=== PATIENT | female | born 1950 | race Asian ===

== ENCOUNTER 2017-09-07 07:41 | Outpatient (CLI) | payer OTHER ==
--- NOTE | 2017-09-08 04:58 | CT Report ---
EXAM: CT TEMPORAL BONE EXAM DATE: 09/07/2017 08:51 AM. CLINICAL HISTORY: Cholesteatoma, eustachian tube dysfunction, hearing loss. COMPARISON: None. TECHNIQUE: Routine axial CT imaging performed through the temporal bones. Reconstructions: Coronal, s agittal bone windows. IV contrast: None. In accordance with CT protocol optimization, one or more of the following dose reduction techniques w ere utilized for this exam: automated exposure control, adjustment of mA and/or KV based on patient s ize, or use of iterative reconstructive technique. FINDINGS: RIGHT: External auditory canal: Patent without significant filling defect. Middle ear and ossicles: Tympanic membrane is normal. The middle ear, including Prussak's space, is c lear. The scutum and ossicles are intact without evidence of bony erosion or dislocation. Cochlea and vestibular apparatus: The cochlea and vestibular apparatus demonstrate normal morphology. The bony plate of the superior semicircular canal is very thin or dehiscent (image 33, series 13). T he vestibular aqueduct is normal size. Internal auditory canal: Patent without evidence of mass lesion. Mastoid air cells: Opacity is noted within the superior lateral and inferior aspects of the mastoid s inus with sclerosis, likely representing chronic mastoiditis or eustachian tube dysfunction. Other: The course of the facial nerve is normal. LEFT: External auditory canal: Patent without significant filling defect. Middle ear and ossicles: Tympanic membrane is normal. There is fluid or soft tissue within Prussak's space. The scutum is blunted and the malleus and incus appear eroded. Cochlea and vestibular apparatus: The cochlea and vestibular apparatus demonstrate normal morphology. No evidence of semicircular canal dehiscence. The vestibular aqueduct is normal size. Internal auditory canal: Patent without evidence of mass lesion. Mastoid air cells: The mastoid air cells are completely opacified with surrounding sclerosis. Other: The course of the facial nerve is normal. IMPRESSION: 1. Opacification of the bilateral mastoid sinuses with sclerosis. These findings could represent special officer chilo mastoiditis and/or eustachian tube dysfunction. 2. Questionable dehiscence of the right superior semicircular canal. 3. Soft tissue or fluid in left Prussak's space with erosion of the malleus and incus and blunting of the scutum, suspicious for cholesteatoma. [facility] Referring Provider Line: [phone] SITE ID: [id number]
== END 2017-09-07 07:42 | disposition home or self-care (01) ==
LOC: DI 07:41
PROVIDERS: ATTEND Otolaryngology
DX: H71.12 Cholesteatoma of tympanum, left ear (principal); H69.83 Other specified disorders of Eustachian tube, bilateral; H91.93 Unspecified hearing loss, bilateral
CPT/HCPCS: 70480

== ENCOUNTER 2017-10-09 13:17 | Emergency (ER) | payer OTHER ==
[2017-10-09 13:33] VITALS: BP 146/85
--- NOTE | 2017-10-09 14:26 | XRAY Preliminary Report ---
Exam: XR RIBS W/PA CHEST LT IMPRESSION: 1. Acute left anterior seventh rib fracture. No pneumothorax. [facility] SITE ID: [id number]
--- NOTE | 2017-10-09 14:26 | XRAY Report ---
EXAM: LEFT RIB RADIOGRAPHY EXAM DATE: 10/09/2017 02:08 PM. CLINICAL HISTORY: Pain. COMPARISON: 08/23/2015. TECHNIQUE: 1 view of the chest and 2 views of the ribs. FINDINGS: Bones: There is fracture of the left seventh rib anteriorly. There is less than 1 mm of displacement. No other fracture identified. Lungs: There is left-sided pleural thickening which appears unchanged. There is volume loss in the le ft lung unchanged. Mediastinum: The heart size is normal. There is aortic arch atherosclerosis unchanged. Other: None. IMPRESSION: 1. Acute left anterior seventh rib fracture. No pneumothorax. [facility] Referring Provider Line: [phone] SITE ID: [id number]
--- NOTE | 2017-10-09 14:50 | ED Physician Documentation ---
PD HPI CHEST PAIN - Stated complaint Stated Complaint: LEFT SIDE PX - Chief complaint Chief Complaint: Abd Pain - History obtained from History obtained from: Patient, Family () - History of Present Illness Timing - onset: Other (5 days ago she was leaning over a couch and felt a pop on the left chest and has persistent pain there. The is worried about a rib fracture. He also wonders if she might have osteoporosis given the mechanism. They declined prescription pain medication, Alereagan is working well. No shortness of breath.) Review of Systems Constitutional: reports: Reviewed and negative Throat: denies: Dental pain / toothache, Sore throat Cardiac: denies: Palpitations, Pedal edema, Calf pain Respiratory: denies: Dyspnea, Hemoptysis PD PAST MEDICAL HISTORY - Past Medical History Cardiovascular: None Respiratory: None Neuro: None Endocrine/Autoimmune: None GI: None ANIMAL RIDE ATTENDANT: None : None HEENT: None Psych: None Musculoskeletal: None Derm: None - Past Surgical History Past Surgical History: No - Present Medications Home Medications: Ambulatory Orders Medication Instructions Recorded Confirmed Ceraplex 1 tab PO BID 05/11/14 05/11/14 Procera Avh 1 tab PO BID 05/11/14 05/11/14 HYDROcod/ACETAM 5/325 [[place] 5/325] 1 - 2 ea PO Q6H PRN #20 tablet 10/09/17 - Allergies Allergies/Adverse Reactions: Allergies Allergy/AdvReac Type Severity Reaction Status Date / Time No Known Drug Allergies Allergy Verified 05/11/14 21:26 - Social History Does the pt smoke?: No Smoking Status: Never smoker Does the pt drink ETOH?: No Does the pt have substance abuse?: No - Immunizations Immunizations are current?: Yes - POLST Patient has POLST: No PD ED PE NORMAL - Vitals Vital signs reviewed: Yes - General General: Alert and oriented X 3, No acute distress - Cardiac Cardiac: RRR, No murmur - Respiratory Respiratory: No respiratory distress, Clear bilaterally - Abdomen Abdomen: Non tender - Neuro Neuro: Alert and oriented X 3, Normal speech Results - Vitals Vitals: Vital Signs - 24 hr 10/09/17 13:28 Temperature 36.3 C L Heart Rate 94 Respiratory 16 Rate Blood Pressure 146/85 H O2 Saturation 100 Oxygen O2 Source Room air - Rads (name of study) L ribs and chest XR Radiology: EMP read contemporaneously (Acute anterior left seventh rib fracture without other abnormality.) PD MEDICAL DECISION MAKING - ED course ED course: Initially she did not want any pain medication but thought better of it before discharge. Departure - Departure Disposition: 01 Home, Self Care Clinical Impression: Fracture of rib, single, closed Qualifiers: Encounter type: initial encounter Laterality: left Qualified Code(s): S22.32XA - Fracture of one rib, left side, initial encounter for closed fracture Condition: Good Record reviewed to determine appropriate education?: Yes Instructions: ED Fx Rib Prescriptions: HYDROcod/ACETAM 5/325 [[place] 5/325] 1 - 2 ea PO Q6H PRN #20 tablet PRN Reason: Pain Comments: Use the incentive spirometer as shown. Follow-up with your doctor for routine care and bone mineral density testing. Return if worse. Your blood pressure was elevated today on check into the emergency department. This does not mean that you have hypertension, it is a common phenomenon to come to the emergency department and have elevated blood pressure. I recommend that you see your primary care physician within the week to have it rechecked when you are feeling better.
[2017-10-09] MEDS ORDERED: HYDROcod/ACETAM 5/325 MG TABLET PO STA (14:57)
== END 2017-10-09 15:18 | disposition home or self-care (01) ==
LOC: ED 13:17
DX: S22.32XA Fracture of one rib, left side, initial encounter for closed fracture (principal); X58.XXXA Exposure to other specified factors, initial encounter
CPT/HCPCS: 71101; 99283; A9270

== ENCOUNTER 2017-12-11 16:40 | Outpatient (CLI) | payer OTHER ==
--- NOTE | 2017-12-11 17:14 | XRAY Report ---
EXAM: CHEST RADIOGRAPHY EXAM DATE: 12/11/2017 04:52 PM. CLINICAL HISTORY: HEMOPTYSIS. COMPARISON: 10/09/2017. TECHNIQUE: 2 views. FINDINGS: Lungs/Pleura: Mild linear scarring in the medial right apex, as before. Mild pleural parenchymal scar ring at the left apex, as before. No new airspace opacities. No interstitial abnormality or peribronc hial cuffing. Minimal left basilar pleural fluid or thickening, as before. Mediastinum: Heart and mediastinal contours are unremarkable. Minimal aortic arch calcification. Other: None. IMPRESSION: 1. No new findings to explain hemoptysis. 2. Mild linear scarring at the medial right apex, as before. Mild left apical pleural parenchymal sca rring, as before. [facility] Referring Provider Line: [phone] SITE ID: [id number]
== END 2017-12-11 16:41 | disposition home or self-care (01) ==
LOC: DI 16:40
PROVIDERS: ATTEND Specialist
DX: R04.2 Hemoptysis (principal)
CPT/HCPCS: 71046

== ENCOUNTER 2018-08-11 18:27 | Outpatient (CLI) | payer MEDICARE, OTHER ==
--- NOTE | 2018-08-12 02:07 | XRAY Report ---
Reason: PAIN IN LEFT WRIST Procedure Date: 08/11/2018 Accession Number: [id number] / [id number] Procedure: XR - Wrist 2 View LT CPT Code: FULL RESULT: EXAM: LEFT WRIST RADIOGRAPHY EXAM DATE: 08/11/2018 06:45 PM. CLINICAL HISTORY: PAIN IN LEFT WRIST. COMPARISON: None. TECHNIQUE: 2 views. FINDINGS: Bones: Normal. No fractures or bone lesions. Joints: Osteoarthritis. Soft Tissues: Normal. No soft tissue swelling. IMPRESSION: Osteoarthritis. No definite fracture seen on these 2 views. [facility]
== END 2018-08-11 18:28 | disposition home or self-care (01) ==
LOC: DI 18:27
PROVIDERS: ATTEND Family Medicine
DX: M19.032 Primary osteoarthritis, left wrist (principal)

== ENCOUNTER 2020-08-04 20:06 | Outpatient (CLI) | payer MEDICARE, OTHER ==
--- OUTSIDE RECORDS SUMMARY | 2020-08-10 01:22 | EXTERNAL MEDICAL SUMMARY RPT | Continuity of Care Document ---
:1950 Demographics Phone Unavailable Preferred Language Unknown Marital Status Unknown Buddhist Affiliation Unknown Race Unknown Ethnic Group Unknown Author Organization [place] Address [address] [place] [address] Phone Care Team Providers Name Role Phone Sisu Unavailable Unavailable Allergies date description facility NO KNOWN ENVIRONMENTAL ALLERGIES [facility] No Known Drug Allergies [facility] Results test status date ordered by attending specimen zackary e null F 2020-08-04 LANG.[email or web address] [facility] 08-04 16:36:00 14:00:00 null F 2020-08-04 LANG.99 [facility] 08-04 16:36:00 14:00:00 facility observation status value reference units lab abnor mal line notes range code [facility] F NEGATIVE unknown [facility] eparate report - Report scanned to Patient' s EMR. [facility] F POSITIVE unknown Called to [facility] Oscar Santos RN Infectio n Preventi on by Katerin ellis MLT( CP) at 193408/05/20 .TOMÁS LINN GE Faxed t [facility] nt by Katerin ellis MLT( CP) at 193408/05/20 . See separate report - Report scanned to Patient' s EMR. [facility] Labor[facility] ry Social History date description facility [phone]
== END 2020-08-04 20:07 | disposition home or self-care (01) ==
LOC: COV 20:06
PROVIDERS: ATTEND Family Medicine
DX: U07.1 COVID-19 (principal)

== ENCOUNTER 2020-08-10 12:46 | Outpatient (CLI) | payer MEDICARE, OTHER | END 2020-08-10 12:47 | disposition critical access hospital (66) | LOC: EMS 12:46 | PROVIDERS: ATTEND Surgery | DX: R06.02 Shortness of breath (principal); R50.9 Fever, unspecified; R05 Cough; M79.10 Myalgia, unspecified site; R19.7 Diarrhea, unspecified | CPT/HCPCS: A0425; A0427 ==

== ENCOUNTER 2020-08-10 13:11 | Inpatient (IN) | payer MEDICARE, OTHER ==
[2020-08-10] MEDS ORDERED: DEXAMETHASONE 10 MG/ML VIAL IVP STA (13:27)
[2020-08-10] MEDS ORDERED: ENOXAPARIN 60 MG/0.6 ML SYRINGE SUBQ STA (13:27)
--- NOTE | 2020-08-10 13:30 | ED Physician Documentation ---
PD HPI DYSPNEA - Stated complaint Stated Complaint: SOA/C+ - Chief complaint Chief Complaint: Resp - History obtained from History obtained from: Patient, EMS - Additional information Additional information: 69-year-old woman with history of asthma was diagnosed with COVID-19 6 days ago by outpatient swab. Since yesterday she has had progressive shortness of breath, both at rest and with exertion. Noted by EMS to have a room air saturation of 83% which responded well to supplemental oxygen. She denies cough. Review of Systems Ten Systems: 10 systems reviewed and negative Constitutional: denies: Fever, Chills Nose: denies: Rhinorrhea / runny nose, Congestion Cardiac: denies: Chest pain / pressure, Palpitations, Pedal edema, Calf pain Respiratory: denies: Hemoptysis, Wheezing PD PAST MEDICAL HISTORY - Past Medical History Cardiovascular: None Respiratory: None Endocrine/Autoimmune: None GI: None PUBLIC HEALTH DENTIST: None : None HEENT: None Psych: None Musculoskeletal: None Derm: None - Past Surgical History Past Surgical History: No - Present Medications Home Medications: Ambulatory Orders Medication Instructions Recorded Confirmed Ceraplex 1 tab PO BID 05/11/14 05/11/14 Procera Avh 1 tab PO BID 05/11/14 05/11/14 HYDROcod/ACETAM 5/325 [[place] 5/325] 1 - 2 ea PO Q6H PRN #20 tablet 10/09/17 Albuterol Sulfate [Proair Hfa 1 puffs INH Q4H PRN 08/10/20 Inhaler] Fluticasone Propion/Salmeterol 1 puffs INH BID 08/10/20 [[place] 250-50 Inhub] Lisinopril [Zestril] 20 mg PO DAILY 08/10/20 Metoprolol Tartrate [Lopressor] 25 mg PO BID 08/10/20 - Allergies Allergies/Adverse Reactions: Allergies Allergy/AdvReac Type Severity Reaction Status Date / Time No Known Drug Allergies Allergy Verified 08/10/20 13:16 - Social History Does the pt smoke?: No Smoking Status: Never smoker Does the pt drink ETOH?: No Does the pt have substance abuse?: No - Immunizations Immunizations are current?: Yes - POLST Patient has POLST: No PD ED PE NORMAL - Vitals Vital signs reviewed: Yes - General General: Alert and oriented X 3, No acute distress - HEENT HEENT: PERRL, EOMI - Neck Neck: Supple, no meningeal sign, No bony TTP - Cardiac Cardiac: RRR, No murmur - Respiratory Respiratory: No respiratory distress, Other (Crackles R base) - Abdomen Abdomen: Soft, Non tender - Back Back: No CVA TTP, No spinal TTP - Derm Derm: Normal color, Warm and dry - Extremities Extremities: No edema, No calf tenderness / cord - Neuro Neuro: Alert and oriented X 3, Normal speech - Psych Psych: Normal mood, Normal affect Results - Vitals Vitals: Vital Signs - 24 hr 08/10/20 08/10/20 08/10/20 13:16 13:21 13:30 Temperature 37.1 C Heart Rate 87 83 84 Respiratory 18 16 14 Rate Blood Pressure 156/85 H 163/73 H O2 Saturation 89 L 86 L 92 08/10/20 08/10/20 08/10/20 13:51 14:00 14:05 Temperature Heart Rate 84 90 82 Respiratory 20 25 H 23 Rate Blood Pressure 149/75 H 130/109 H O2 Saturation 94 79 L 98 08/10/20 08/10/20 14:30 15:00 Temperature Heart Rate 82 83 Respiratory 18 21 Rate Blood Pressure 133/64 H 105/86 H O2 Saturation 98 98 Oxygen O2 Source Nasal cannula - Labs Labs: Laboratory Tests 08/10/20 08/10/20 08/10/20 13:40 13:40 14:15 WBC 7.6 RBC 4.99 Hgb 14.3 Hct 43.1 MCV 86.4 MCH 28.7 MCHC 33.2 RDW 11.6 L Plt Count 172 MPV 9.9 Neut # (Auto) 6.3 Lymph # (Auto) 0.7 L Polk # (Auto) 0.6 Eos # (Auto) 0.0 Baso # (Auto) 0.0 Absolute Nucleated RBC 0.00 Nucleated RBC % 0.0 Sodium 128 L Potassium 4.5 Chloride 93 L Carbon Dioxide 23 Anion Gap 12.0 BUN 7 Creatinine 0.7 Estimated GFR (MDRD) 83 L Glucose 139 H Lactic Acid 1.2 Calcium 8.5 Total Bilirubin 0.6 AST 47 H ALT 25 Alkaline Phosphatase 86 Total Protein 7.6 Albumin 3.2 Globulin 4.4 H Albumin/Globulin Ratio 0.7 L Lipase 160 H PD MEDICAL DECISION MAKING - ED course ED course: This is a 69-year-old woman with known coronavirus who presents with now shortness of breath and significant hypoxemia and findings of pneumonia on x- ray. The lowest that we saw in the ER was in the low 70s and she certainly has a supplemental oxygen requirement. She was cultured up and given full dose Lovenox, remdesivir, and Decadron. Spoke with Dr. Luna for admission at approximately 3 PM. He requests that we treat for community-acquired pneumonia with Rocephin and Zithromax. Departure - Departure Disposition: 66 [facility] DC/Xfer Clinical Impression: Pneumonia due to COVID-19 virus, Hypoxemia Condition: Serious
[2020-08-10 14:00] LABS: BASOPHILS % (AUTO) 0.1 %; EOSINOPHILS % (AUTO) 0.1 %; HGB - HEMOGLOBIN 14.3 g/dL (12.0-16.0); LYMPHOCYTES # (AUTO) 0.7 10^3/uL (1.5-3.5); LYMPHOCYTES % (AUTO) 8.8 %; MEAN CORPUSCULAR HEMOGLOBIN 28.7 pg (27.0-31.0); MEAN CORPUSCULAR HGB CONC 33.2 g/dL (32.0-36.0); MEAN CORPUSCULAR VOLUME 86.4 fL (81.0-99.0); MEAN PLATELET VOLUME 9.9 fL (7.9-10.8); MONOCYTES # (AUTO) 0.6 10^3/uL (0.0-1.0); MONOCYTES % (AUTO) 7.6 %; NEUTROPHILS # (AUTO) 6.3 10^3/uL (1.5-6.6); NEUTROPHILS % (AUTO) 82.6 %; PLT - PLATELET COUNT 172 10^3/uL (130-450); RED BLOOD COUNT 4.99 10^6/uL (4.20-5.40); RED CELL DISTRIBUTION WIDTH 11.6 % (12.0-15.0); WHITE BLOOD COUNT 7.6 x10^3/uL (4.8-10.8)
--- NOTE | 2020-08-10 14:23 | XRAY Report ---
PROCEDURE: Chest 1 View X-Ray INDICATIONS: dyspnea, covid pos TECHNIQUE: One view of the chest was acquired. COMPARISON: CXR 08/10/20 FINDINGS: Surgical changes and devices: None. Lungs and pleura: Bilateral pulmonary and retrocardiac opacities, right greater than left. Mediastinum: Mediastinal contours appear normal. Heart size is normal. Bones and chest wall: No suspicious bony lesions. Overlying soft tissues appear unremarkable. IMPRESSION: Bilateral pulmonary and retrocardiac retrocardiac opacities suggestive of pneumonia. Underlying area s of edema and/or atelectasis cannot be excluded. Reviewed by: Rica Brewer MD on 08/10/2020 2:22 PM PST Approved by: Rica Brewer MD on 08/10/2020 2:22 PM [facility] Station ID: [id number]
[2020-08-10 14:34] LABS: ALBUMIN 3.2 g/dL (3.2-5.5); ALBUMIN/GLOBULIN RATIO 0.7 (1.0-2.2); BILIRUBIN,TOTAL 0.6 mg/dL (0.2-1.0); CALCIUM 8.5 mg/dL (8.5-10.3); CREATININE 0.7 mg/dL (0.4-1.0); TOTAL PROTEIN 7.6 g/dL (6.7-8.2)
[2020-08-10] MEDS ORDERED: cefTRIAXone 2 GM in SODIUM CHLORIDE 0.9% MINIBAG 100 ML IV STA (14:59)
[2020-08-10] MEDS ORDERED: AZITHROMYCIN INJ 500 MG in SODIUM CHLORIDE 0.9% 250 ML IV STA (14:59)
[2020-08-10] MEDS ORDERED: REMDESIVIR 100MG VIAL 200 MG in SODIUM CHLORIDE 0.9% 250 ML IV ONE (15:00)
[2020-08-10] MEDS ORDERED: ONDANSETRON 4 MG/2 ML VIAL IVP PRN (15:20)
[2020-08-10] MEDS ORDERED: ACETAMINOPHEN 325 MG TABLET PO PRN (15:20)
[2020-08-10] MEDS ORDERED: SODIUM CHLORIDE FLUSH 0.9% 10 ML SYRINGE IVP PRN (15:20)
[2020-08-10] MEDS ORDERED: ALBUTEROL 1 PUFF INH STA (15:24)
[2020-08-10] MEDS ORDERED: oxyCODONE 5 MG TABLET PO PRN (15:26)
--- NOTE | 2020-08-10 15:31 | HISTORY & PHYSICAL EXAMINATION ---
Chief Complaint - Chief Complaint Chief Complaint: shortness of breath History of Present Illness - Admitted From Admitted From:: ER - History Obtained From Records Reviewed: [facility] History obtained from: pt Exam Limitations: some language banner - History of Present Illness HPI Comment/Other: This is a 69-year-old woman with history of asthma And hypertension He waswas diagnosed with COVID-19 7 days ago by outpatient swab. Since yesterday she has had progressive shortness of breath, both at rest and with exertion, And diarrhea on today. Patient was Noted by EMS to have a room air saturation of 83% which responded well to supplemental oxygen, after 15 L nonrebreather mask her sats kimberlee to 98%. She denies cough, Fever, Chest pain, Nausea or vomiting. In the ER patient has no tachycardia or tachypnea, afebrile. She has 86 to 89% o2 saturation on room air. After 2 L oxygen with nasal cannula, her O2 s aturation rise to 98%. Routine laboratory tests show was unremarkable except sodium 128. Given above medical condition, medical team was called for admission. Discussed the care goal with the patient, patient request full code. History - Past Medical History Cardiovascular: reports: None Respiratory: reports: None Endocrine/Autoimmune: reports: None GI: reports: None SLAG DUMPER: reports: None : reports: None HEENT: reports: None Psych: reports: None Musculoskeletal: reports: None Derm: reports: None MRSA Hx?: No - Family & Social History Family History: Mother: , Father: Family History Comment/Other: Patient report her father at age [age] years old unknown etiology. Her mother at when she was age 5. Social History Notes: Patient denies history of cigarette smoking, alcohol or drug abuse. She reported she lives at [place], she had 3 children. she live with her - POLST Patient has POLST: No Meds/Allgy - Home Medications Home Medications: Ambulatory Orders Medication Instructions Recorded Confirmed Ceraplex 1 tab PO BID 05/11/14 05/11/14 Procera Avh 1 tab PO BID 05/11/14 05/11/14 HYDROcod/ACETAM 5/325 [[place] 5/325] 1 - 2 ea PO Q6H PRN #20 tablet 10/09/17 Albuterol Sulfate [Proair Hfa 1 puffs INH Q4H PRN 08/10/20 Inhaler] Fluticasone Propion/Salmeterol 1 puffs INH BID 08/10/20 [[place] 250-50 Inhub] Lisinopril [Zestril] 20 mg PO DAILY 08/10/20 Metoprolol Tartrate [Lopressor] 25 mg PO BID 08/10/20 - Allergies Allergies/Adverse Reactions: Allergies Allergy/AdvReac Type Severity Reaction Status Date / Time No Known Drug Allergies Allergy Verified 08/10/20 13:16 Review of Systems - Constitutional Constitutional: denies: Fatigue, Fever, Chills, Malaise, Weakness, Poor appetite, Diaphoresis, Night sweats - Eyes Eyes: denies: Pain, Blurred vision, Field loss, Vision loss - Ears, Nose & Throat Ears, Nose & Throat: denies: Ear pain, Vertigo, Nosebleeds, Bleeding gums - Cardiovascular Cariovascular: reports: Exertional dyspnea, Decr. exercise tolerance. denies: I rregular heart rate, Palpitations, Chest pain, Edema, Lightheadedness, Syncope - Respiratory Respiratory: reports: SOB with exertion. denies: Cough, Sputum production, Wheezing, Snoring, Hemoptysis, Orthopnea, SOB at rest - Gastrointestinal Gastrointestinal: reports: Diarrhea. denies: Abdominal pain, Constipation, Rect al bleeding, Black stools, Bloody stools, Nausea, Vomiting, Titus blood emesis - Genitourinary Genitourinary: denies: Dysuria, Urgency, Incontinence - Musculoskeletal Musculoskeletal: denies: Muscle pain, Muscle aches, Limited range of motion - Integumentary Integumentary: denies: Rash, Lesions, Lumps - Neurological Neurological: denies: General weakness, Focal weakness, Headache, Dizziness, Numbness, Pre-existing deficit, Abnormal gait - Psychiatric Psychiatric: denies: Depression, Suicidal, Delusions - Endocrine Endocrine: denies: Polyuria, Polydypsia, Polyphagia - Hematologic/Lymphatic Hematologic/Lymphatic: denies: Anemia, Petechiae, Blood clots Prior Level of Functionality: Patient has function independent Exam - Vital Signs Vital Signs: Vital Signs x48h Temp Pulse Resp BP Pulse Ox 08/10/20 15:00 83 21 105/86 H 98 08/10/20 14:30 82 18 133/64 H 98 08/10/20 14:05 82 23 130/109 H 98 08/10/20 14:00 90 25 H 79 L 08/10/20 13:51 84 20 149/75 H 94 08/10/20 13:30 84 14 92 08/10/20 13:21 83 16 163/73 H 86 L 08/10/20 13:16 37.1 C 87 18 156/85 H 89 L - Physical Exam General Appearance: positive: No acute distress, Alert. negative: Lethargic Eyes Bilateral: positive: Normal inspection, PERRL, No lid inflammation ENT: positive: ENT inspection nml, No signs of dehydration. negative: Purulent nasal drainage Neck: positive: Nml inspection, Trachea midline. negative: Thyromegaly, Tracheal deviation Respiratory: positive: Chest non-tender, No respiratory distress, Rhonchi. negative: Breath sounds nml, Wheezes, Rales Cardiovascular: negative: Regular rate & rhythm, No murmur, Tachycardia, Bradycardia, Systolic murmur, Diastolic murmur Peripheral Pulses: positive: 2+ Abdomen: positive: Non-tender, Nml bowel sounds, No distention. negative: Tenderness, Guarding, Rebound Back: negative: CVA tenderness (R), CVA tenderness (L) Skin: positive: Color nml, Warm, Dry. negative: Cyanosis, Diaphoresis, Pallor Extremities: positive: Non-tender, Nml appearance. negative: Calf tenderness Neurologic/Psychiatric: positive: Oriented x3, Sensation nml, Mood/affect nml. negative: Weakness, Sensory loss, Facial droop, Slurred/abnml speech, Depressed mood/affect Conclusion/Plan - Problem List (1) Pneumonia due to COVID-19 virus Conclusion/Plan: Patient had a positive COVID-19 test 7 days ago, there are many patient present symptoms after 1 week. Patient show shortness breathing at the home then patient was brought to hospital. After the patient with oxygen, patient show hemodynamic stable, patient does not show respiratory distress at this point After she was given oxygen. Patient was already treated COVID-19 with with r emdesivir, decadron and Lovenox in the ER. We will continue supplemental oxygen as needed, continue treat with remdesivir, decadron and Lovenox as DVT prophylaxis. Dr. Bullock asked to treat community-acquired pneumonia with azithromycin and Rocephin as well. Patient was prescribed probiotics (2) Hypoxemia Conclusion/Plan: Patient show 86% to 89% sats on room air in the ER, After she had 1 week tested positive for COVID-19. We will continue supplemental oxygen for patient, will continue treated COVID-19 with currently CDC recommended medications. We will closely monitor patient for her situation, carefully precaution of any deterioration Of respiratory status. (3) Hypertension Conclusion/Plan: Patient blood pressure is stable now. we will continue patient home blood pressure medicine after Confirmed (4) Asthma Conclusion/Plan: Patient has history of asthma, we will order albuterol MDI, Continue Decadron. Supplemental oxygen as needed (5) Hyponatremia Conclusion/Plan: Patient had a sodium 128, it is likely Hypovolumia of hyponatremia, we will give patient intravenous normal saline, continue laboratory coordinator - Lab Results Fish Bones: 08/10/20 13:40 08/10/20 14:15 Core Measures - Anticipated LOS I expect patient to be DC'd or transferred within 96 hours.: Yes - DVT/VTE - Prophylaxis VTE/DVT Device ordered at admit?: Yes VTE/DVT Prophylaxis med ordered at admit?: Yes
[2020-08-10] MEDS ORDERED: ALBUTEROL NEB 2.5 MG/3 ML INH PRN (16:05)
[2020-08-10] MEDS: SODIUM CHLORIDE FLUSH 0.9% 10 ML SYRINGE IVP SCH ×2 (16:38→23:43)
[2020-08-10] MEDS: SODIUM CHLORIDE 0.9% 1,000 ML IV SCH (16:38)
[2020-08-10] MEDS: traZODone 50 MG TABLET PO SCH (22:11)
[2020-08-11] MEDS: SODIUM CHLORIDE 0.9% 1,000 ML IV SCH (03:41)
[2020-08-11 05:08] LABS: BASOPHILS % (AUTO) 0.3 %; LYMPHOCYTES % (AUTO) 15.3 %; MEAN CORPUSCULAR HEMOGLOBIN 28.4 pg (27.0-31.0); MEAN CORPUSCULAR HGB CONC 32.2 g/dL (32.0-36.0); MEAN CORPUSCULAR VOLUME 88.2 fL (81.0-99.0); MEAN PLATELET VOLUME 9.3 fL (7.9-10.8); MONOCYTES % (AUTO) 9.8 %; NEUTROPHILS % (AUTO) 73.8 %; PLT - PLATELET COUNT 173 10^3/uL (130-450); RED BLOOD COUNT 4.23 10^6/uL (4.20-5.40); RED CELL DISTRIBUTION WIDTH 11.7 % (12.0-15.0); WHITE BLOOD COUNT 3.7 x10^3/uL (4.8-10.8)
[2020-08-11 05:10] LABS: CALCIUM 8.2 mg/dL (8.5-10.3); CREATININE 0.7 mg/dL (0.4-1.0)
[2020-08-11 05:20] LABS: ABNORMAL LYMPHS % (MANUAL) 0 %
[2020-08-11 05:42] LABS: BAND NEUTROPHILS % (MANUAL) 2 %; DIFFERENTIAL COMMENT MANUAL DIFFERENTIAL; LYMPHOCYTES # (MANUAL) 0.4 10^3/uL (1.5-3.5); LYMPHOCYTES % (MANUAL) 11 %; METAMYELOCYTES % (MANUAL) 1 %; MONOCYTES # (MANUAL) 0.2 10^3/uL (0.0-1.0); PLATELET ESTIMATE, MANUAL NORMAL (130-450,000) (NORMAL); RBC MORPHOLOGY (MULTIPLE) NORMAL APPEARANCE (NORMAL)
[2020-08-11] MEDS: PANTOPRAZOLE 40 MG TABLET PO SCH (06:54)
[2020-08-11] MEDS: SACCHAROMYCES BOULARDII 250 MG CAPSULE PO SCH ×2 (07:55→17:46)
[2020-08-11] MEDS ORDERED: ALBUTEROL 1 PUFF INH PRN (08:28)
[2020-08-11] MEDS: cefTRIAXone 2 GM in SODIUM CHLORIDE 0.9% MINIBAG 100 ML IV SCH (08:40)
[2020-08-11] MEDS: ENOXAPARIN 40 MG/0.4 ML SYRINGE SUBQ SCH (08:40)
[2020-08-11] MEDS: AZITHROMYCIN 250 MG TABLET PO SCH (08:41)
[2020-08-11] MEDS ORDERED: METOPROLOL 5 MG/5 ML VIAL IVP PRN (08:52)
[2020-08-11] MEDS ORDERED: METOPROLOL TARTRATE 25 MG TABLET PO SCH ×2 (09:00→21:00)
[2020-08-11] MEDS ORDERED: METOPROLOL 5 MG/5 ML VIAL IVP SCH (09:00)
[2020-08-11] MEDS: REMDESIVIR 100MG VIAL 100 MG in SODIUM CHLORIDE 0.9% 100ML 100 ML IV SCH (09:22)
[2020-08-11] MEDS: DEXAMETHASONE 10 MG/ML VIAL IVP SCH (09:57)
--- NOTE | 2020-08-11 14:51 | PROVIDER PROGRESS NOTE ---
Subjective - Prog Note Date Prog Note Date: 08/11/20 - Subjective Pt reports feeling: Improved Subjective: Patient reported she feel breath better, she take a shower go to bathroom and come back. 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 After we give patient intravenous metoprolol and p.o. metoprolol, her pulse is controlled, she feels much better. Patient does not present Acute respiratory distress. She denies fever fever, or chest pain. [facility] vital sign show pt only has 89% on 2 liter of O2 but pt feel comfortable and no respiratory distress, I ask FINISHER HAND recheck pt's O2 sats and vital sign Current Medications - Current Medications Current Medications: Active Medications Acetaminophen (Acetaminophen 325 Mg Tablet) 650 mg PO Q4HR PRN PRN Reason: Pain 1 to 4 Albuterol (Albuterol 1 Puff) 2 puffs INH RTQ4H PRN PRN Reason: Dyspnea Stop: 08/18/20 08:27 Last Admin: 08/11/20 08:49 Dose: 2 puffs Documented by: Azithromycin (Azithromycin 250 Mg Tablet) 250 mg PO DAILY [facility] Stop: 08/14/20 09:01 Last Admin: 08/11/20 08:41 Dose: 250 mg Documented by: Dexamethasone (Dexamethasone 10 Mg/Ml Vial) 6 mg IVP DAILY [facility] Stop: 08/14/20 12:00 Last Admin: 08/11/20 09:57 Dose: 6 mg Documented by: Enoxaparin Sodium (Enoxaparin 40 Mg/0.4 Ml Syringe) 40 mg SUBQ DAILY [facility] Last Admin: 08/11/20 08:40 Dose: 40 mg Documented by: Ceftriaxone Sodium 2 gm/ (Sodium Chloride) 100 mls @ 200 mls/hr IV DAILY [facility] Stop: 08/14/20 09:29 Last Infusion: 08/11/20 09:10 Dose: Infused Documented by: Remdesivir 100 mg/ Sodium (Chloride) 100 mls @ 200 mls/hr IV DAILY [facility] Stop: 08/14/20 09:29 Last Infusion: 08/11/20 10:50 Dose: Infused Documented by: Lisinopril (Lisinopril 20 Mg Tablet) 20 mg PO DAILY [facility] Metoprolol Tartrate (Metoprolol 5 Mg/5 Ml Vial) 5 mg IVP Q6H PRN PRN Reason: Tachycardia Metoprolol Tartrate (Metoprolol Tartrate 25 Mg Tablet) 37.5 mg PO BID [facility] Ondansetron HCl (Ondansetron 4 Mg/2 Ml Vial) 4 mg IVP Q6HR PRN PRN Reason: Nausea / Vomiting Oxycodone HCl (Oxycodone 5 Mg Tablet) 5 mg PO Q4HR PRN PRN Reason: PAIN Pantoprazole Sodium (Pantoprazole 40 Mg Tablet) 40 mg PO QDAC [facility] Last Admin: 08/11/20 06:54 Dose: 40 mg Documented by: Saccharomyces Boulardii (Saccharomyces Boulardii 250 Mg Capsule) 250 mg PO BIDWM [facility] Last Admin: 08/11/20 07:55 Dose: 250 mg Documented by: Sodium Chloride (Sodium Chloride Flush 0.9% 10 Ml Syringe) 10 ml IVP PRN PRN PRN Reason: NEEDED PER PROVIDER ORDERS Sodium Chloride (Sodium Chloride Flush 0.9% 10 Ml Syringe) 10 ml IVP 0100,0900,1700 [facility] Last Admin: 08/10/20 23:43 Dose: 10 ml Documented by: Trazodone HCl (Trazodone 50 Mg Tablet) 50 mg PO QPM [facility] Last Admin: 08/10/20 22:11 Dose: 50 mg Documented by: Albuterol Sulfate [Proair Hfa Inhaler] 1 puffs INH Q4H PRN 08/10/20 Fluticasone Propion/Salmeterol [Wixela 250-50 Inhub] 1 puffs INH BID 08/10/20 Lisinopril [Zestril] 20 mg PO DAILY 08/10/20 Metoprolol Tartrate [Lopressor] 25 mg PO BID 08/10/20 Objective - Vital Signs/Intake & Output Vital Signs: Vital Signs x48h Temp Pulse Pulse Resp BP Pulse Ox 08/11/20 13:00 36.5 C 100 21 177/91 H 89 L 08/11/20 09:49 104 H 138/87 H 08/11/20 09:45 110 H 155/98 H 08/11/20 09:30 97 145/73 H 08/11/20 09:22 107 H 162/80 H 08/11/20 08:50 130 H 18 08/11/20 08:42 36.7 C 128 H 18 93 08/11/20 08:08 140 H 21 151/87 H 97 08/11/20 07:37 36.7 C 65 20 146/66 H 94 Intake & Output: Intake & Output 08/08/20 08/09/20 08/10/20 08/11/20 23:59 23:59 23:59 23:59 Intake Total 394.065 7391 Balance 582.488 5084 - Objective General Appearance: positive: No acute distress, Alert. negative: Lethargic Eyes Bilateral: positive: Normal inspection, PERRL, No lid inflammation ENT: positive: ENT inspection nml, No signs of dehydration. negative: Purulent nasal drainage Neck: positive: Nml inspection, Trachea midline. negative: Thyromegaly, Tracheal deviation Respiratory: positive: Chest non-tender, No respiratory distress, Rhonchi. negative: Wheezes, Rales Cardiovascular: positive: Regular rate & rhythm, No murmur. negative: Tach ycardia, Bradycardia, Systolic murmur, Diastolic murmur Peripheral Pulses: 2+ Radial (R), 2+ Radial (L) Abdomen: positive: Non-tender, Nml bowel sounds, No distention. negative: Tenderness, Guarding, Rebound Back: positive: Nml inspection Skin: positive: Color nml, Warm, Dry. negative: Cyanosis, Diaphoresis, Pallor Extremities: positive: Non-tender, Full ROM, Nml appearance. negative: Calf tenderness Neurologic/Psychiatric: positive: Oriented x3, Motor nml, Sensation nml, Mood/affect nml. negative: Weakness, Sensory loss, Facial droop, Slurred/abnml speech, Depressed mood/affect - Lab Results Fish Bones: 08/11/20 04:05 08/11/20 04:05 Other Labs: Lab Results x24hrs 08/11/20 08/11/20 Range/Units 04:05 04:05 WBC 3.7 L (4.8-10.8) x10^3/uL RBC 4.23 (4.20-5.40) 10^6/uL Hgb 12.0 (12.0-16.0) g/dL Hct 37.3 (37.0-47.0) % MCV 88.2 (81.0-99.0) fL MCH 28.4 (27.0-31.0) pg MCHC 32.2 (32.0-36.0) g/dL RDW 11.7 L (12.0-15.0) % Plt Count 173 (130-450) 10^3/uL MPV 9.3 (7.9-10.8) fL Neut # (Auto) Not Reportable Lymph # (Auto) Not Reportable [place] # (Auto) Not Reportable Eos # (Auto) Not Reportable Baso # (Auto) Not Reportable Absolute Nucleated RBC Not Reportable Total Counted 100 Band Neuts % (Manual) 2 (0 - 10) % Abnorm Lymph % (Manual) 0 % Metamyelocytes % 1 H ( - 0) % Nucleated RBC % Not Reportable Neutrophils # (Manual) 3.1 (1.5-6.6) 10^3/uL Lymphocytes # (Manual) 0.4 L (1.5-3.5) 10^3/uL Monocytes # (Manual) 0.2 (0.0-1.0) 10^3/uL Eosinophils # (Manual) 0.0 (0-0.7) 10^3/uL Basophils # (Manual) 0.0 (0-0.1) 10^3/uL Differential Comment MANUAL DIFFERENTIAL Platelet Estimate NORMAL (130-450,000) (NORMAL) RBC Morph Micro Appear NORMAL APPEARANCE (NORMAL) Sodium 134 L (135-145) mmol/L Potassium 4.7 (3.5-5.0) mmol/L Chloride 105 (101-111) mmol/L Carbon Dioxide 21 (21-32) mmol/L Anion Gap 8.0 (6-13) BUN 11 (6-20) mg/dL Creatinine 0.7 (0.4-1.0) mg/dL Estimated GFR (MDRD) 83 L (>89) Glucose 165 H (70-100) mg/dL Calcium 8.2 L (8.5-10.3) mg/dL ABX Reporting Has patient been on IV antibiotics over the past 48 hours?: Yes Sepsis Event Note (H) - Evaluation Current Stage of Sepsis: Ruled out Assessment/Plan - Problem List (1) Pneumonia due to COVID-19 virus Impression: 08/11 Nurse report patient had a 94% sat on 2 L of oxygen. Patient has no respiratory distress. We will continue Covid 19 treatment of Decadron and remdesvis, and Lovenox for DVT prophylaxis. Continue antibiotics For treatment of possible bacterial infection pneumonia Patient had a positive COVID-19 test 7 days ago, there are many patient present symptoms after 1 week. Patient show shortness breathing at the home then patient was brought to hospital. After the patient with oxygen, patient show hemodynamic stable, patient does not show respiratory distress at this point After she was given oxygen. Patient was already treated COVID-19 with with remdesivir, decadron and Lovenox in the ER. We will continue supplemental oxygen as needed, continue treat with remdesivir, decadron and Lovenox as DVT prophylaxis. Dr. Bullock asked to treat community-acquired pneumonia with azithromycin and Rocephin as well. Patient was prescribed probiotics (2) Hypoxemia Conclusion/Plan: 08/11, Patient feels comfortable, patient has no respiratory distress or shortness breathing, She had 94% sats on 2 L of oxygen. Continue treated pneumo [place], Continue supplemental oxygen as needed Patient show 86% to 89% sats on room air in the ER, After she had 1 week tested positive for COVID-19. We will continue supplemental oxygen for patient, will continue treated COVID-19 with currently CDC recommended medications. We will closely monitor patient for her situation, carefully precaution of any deterioration Of respiratory status. (3)afib with RVR 08/11 Patient Feel palpation, patient's heart rate was up to 130-140, EKG show patient had a fibrillation. Patient was unknown she had before. Chads score is 1, No anticoagulation indicated. We will give patient intravenous metoprolol, resume home metoprolol. Then patient heart rate is down less than 100, And patient feels much better. 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 Continue vital signs monitor Patient blood pressure is stable now. we will continue patient home blood pressure medicine after Confirmed (5) Asthma Conclusion/Plan: Patient has history of asthma, we will order albuterol MDI, Continue Decadron. 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
[2020-08-11] MEDS: lisinopriL 20 MG TABLET PO SCH (15:12)
[2020-08-11] MEDS: SODIUM CHLORIDE FLUSH 0.9% 10 ML SYRINGE IVP SCH ×2 (15:13→17:46)
[2020-08-11] MEDS: METOPROLOL TARTRATE 25 MG TABLET PO SCH (21:39)
[2020-08-11] MEDS: traZODone 50 MG TABLET PO SCH (21:41)
[2020-08-12] MEDS: SODIUM CHLORIDE FLUSH 0.9% 10 ML SYRINGE IVP SCH ×3 (01:39→16:59)
[2020-08-12 05:18] LABS: BASOPHILS % (AUTO) 0.1 %; HGB - HEMOGLOBIN 12.7 g/dL (12.0-16.0); LYMPHOCYTES % (AUTO) 11.6 %; MEAN CORPUSCULAR HEMOGLOBIN 28.6 pg (27.0-31.0); MEAN CORPUSCULAR HGB CONC 32.6 g/dL (32.0-36.0); MEAN CORPUSCULAR VOLUME 87.6 fL (81.0-99.0); MEAN PLATELET VOLUME 9.6 fL (7.9-10.8); MONOCYTES % (AUTO) 7.1 %; NEUTROPHILS % (AUTO) 80.4 %; PLT - PLATELET COUNT 227 10^3/uL (130-450); RED BLOOD COUNT 4.44 10^6/uL (4.20-5.40); RED CELL DISTRIBUTION WIDTH 11.8 % (12.0-15.0)
[2020-08-12 05:23] LABS: CALCIUM 8.7 mg/dL (8.5-10.3); CREATININE 0.8 mg/dL (0.4-1.0)
[2020-08-12 05:34] LABS: ABNORMAL LYMPHS % (MANUAL) 0 %
[2020-08-12 06:10] LABS: BAND NEUTROPHILS % (MANUAL) 4 %; LYMPHOCYTES # (MANUAL) 0.8 10^3/uL (1.5-3.5); LYMPHOCYTES % (MANUAL) 9 %; MONOCYTES # (MANUAL) 0.6 10^3/uL (0.0-1.0); PLATELET ESTIMATE, MANUAL NORMAL (130-450,000) (NORMAL); RBC MORPHOLOGY (MULTIPLE) NORMAL APPEARANCE (NORMAL)
[2020-08-12 06:11] LABS: DIFFERENTIAL COMMENT MANUAL DIFFERENTIAL
[2020-08-12] MEDS: PANTOPRAZOLE 40 MG TABLET PO SCH (06:34)
[2020-08-12] MEDS: lisinopriL 20 MG TABLET PO SCH (10:58)
[2020-08-12] MEDS: SACCHAROMYCES BOULARDII 250 MG CAPSULE PO SCH ×2 (10:58→16:59)
[2020-08-12] MEDS: ASPIRIN EC 325 MG TABLET PO SCH (10:58)
[2020-08-12] MEDS: METOPROLOL TARTRATE 25 MG TABLET PO SCH ×2 (10:58→21:18)
[2020-08-12] MEDS: AZITHROMYCIN 250 MG TABLET PO SCH (10:58)
[2020-08-12] MEDS: ENOXAPARIN 40 MG/0.4 ML SYRINGE SUBQ SCH (11:00)
[2020-08-12] MEDS: cefTRIAXone 2 GM in SODIUM CHLORIDE 0.9% MINIBAG 100 ML IV SCH (11:01)
[2020-08-12] MEDS: DEXAMETHASONE 10 MG/ML VIAL IVP SCH (11:01)
[2020-08-12] MEDS: SODIUM CHLORIDE 0.9% 1,000 ML IV SCH ×2 (11:02→21:46)
[2020-08-12] MEDS: REMDESIVIR 100MG VIAL 100 MG in SODIUM CHLORIDE 0.9% 100ML 100 ML IV SCH (11:10)
--- NOTE | 2020-08-12 11:38 | PHARMACY PROGRESS NOTE ---
- Best Possible Medication History Admit Date and Time: 08/10/20 1520 Processed by: Pharmacy Medication History completed: Yes Patient Interview: Pt unable to participate Secondary Source(s): Pharmacy records, Insurance records (PATIENT COVID POS; MEDICATION RECONCILIATION COMPLETED USING ONLY INSURANCE RECORDS ) As the person ultimately responsible for medication therapy, providers are able to order a medication from an existing home medication list in [facility] via the "Reconcile Routine" prior to Confirmation of that medication by telecommunications support. Such practice is discouraged except when the physician, in their clinical judgment, deems that a medical need exists for a medication without regard to previous use.
--- NOTE | 2020-08-12 13:24 | PROVIDER PROGRESS NOTE ---
Subjective - Prog Note Date Prog Note Date: 08/12/20 - Subjective Pt reports feeling: Improved Subjective: Patient reported she feels breathing better. Patient is comfortable, no respiratory distress sitting in the chair to eat her lunch. 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 She denies chest pain or fever Current Medications - Current Medications Current Medications: Active Medications Acetaminophen (Acetaminophen 325 Mg Tablet) 650 mg PO Q4HR PRN PRN Reason: Pain 1 to 4 Albuterol (Albuterol 1 Puff) 2 puffs INH RTQ4H PRN PRN Reason: Dyspnea Stop: 08/18/20 08:27 Last Admin: 08/11/20 08:49 Dose: 2 puffs Documented by: Aspirin (Aspirin Ec 325 Mg Tablet) 325 mg PO DAILY [facility] Last Admin: 08/12/20 10:58 Dose: 325 mg Documented by: Azithromycin (Azithromycin 250 Mg Tablet) 250 mg PO DAILY [facility] Stop: 08/14/20 09:01 Last Admin: 08/12/20 10:58 Dose: 250 mg Documented by: Dexamethasone (Dexamethasone 10 Mg/Ml Vial) 6 mg IVP DAILY [facility] Stop: 08/14/20 12:00 Last Admin: 08/12/20 11:01 Dose: 6 mg Documented by: Enoxaparin Sodium (Enoxaparin 40 Mg/0.4 Ml Syringe) 40 mg SUBQ DAILY [facility] Last Admin: 08/12/20 11:00 Dose: 40 mg Documented by: Ceftriaxone Sodium 2 gm/ (Sodium Chloride) 100 mls @ 200 mls/hr IV DAILY [facility] Stop: 08/14/20 09:29 Last Admin: 08/12/20 11:01 Dose: 200 mls/hr Documented by: Remdesivir 100 mg/ Sodium (Chloride) 100 mls @ 200 mls/hr IV DAILY [facility] Stop: 08/14/20 09:29 Last Admin: 08/12/20 11:10 Dose: 200 mls/hr Documented by: Sodium Chloride (Normal Saline 0.9%) 1,000 mls @ 83.333 mls/hr IV .Q12H [facility] Stop: 08/13/20 08:59 Last Admin: 08/12/20 11:02 Dose: 83.333 mls/hr Documented by: Lisinopril (Lisinopril 20 Mg Tablet) 20 mg PO DAILY [facility] Last Admin: 08/12/20 10:58 Dose: 20 mg Documented by: Metoprolol Tartrate (Metoprolol 5 Mg/5 Ml Vial) 5 mg IVP Q6H PRN PRN Reason: Tachycardia Metoprolol Tartrate (Metoprolol Tartrate 25 Mg Tablet) 37.5 mg PO BID [facility] Last Admin: 08/12/20 10:58 Dose: 37.5 mg Documented by: Ondansetron HCl (Ondansetron 4 Mg/2 Ml Vial) 4 mg IVP Q6HR PRN PRN Reason: Nausea / Vomiting Oxycodone HCl (Oxycodone 5 Mg Tablet) 5 mg PO Q4HR PRN PRN Reason: PAIN Pantoprazole Sodium (Pantoprazole 40 Mg Tablet) 40 mg PO QDAC [facility] Last Admin: 08/12/20 06:34 Dose: 40 mg Documented by: Saccharomyces Boulardii (Saccharomyces Boulardii 250 Mg Capsule) 250 mg PO BIDWM [facility] Last Admin: 08/12/20 10:58 Dose: 250 mg Documented by: Sodium Chloride (Sodium Chloride Flush 0.9% 10 Ml Syringe) 10 ml IVP PRN PRN PRN Reason: NEEDED PER PROVIDER ORDERS Sodium Chloride (Sodium Chloride Flush 0.9% 10 Ml Syringe) 10 ml IVP 0100,0900,1700 [facility] Last Admin: 08/12/20 11:01 Dose: 10 ml Documented by: Trazodone HCl (Trazodone 50 Mg Tablet) 50 mg PO QPM [facility] Last Admin: 08/11/20 21:41 Dose: 50 mg Documented by: Albuterol Sulfate [Proair Hfa Inhaler] 1 puffs INH Q4H PRN 08/10/20 Fluticasone Propion/Salmeterol [Wixela 250-50 Inhub] 1 puffs INH BID 08/10/20 Lisinopril [Zestril] 20 mg PO DAILY 08/10/20 Metoprolol Tartrate [Lopressor] 25 mg PO BID 08/10/20 Objective - Vital Signs/Intake & Output Vital Signs: Vital Signs x48h Temp Pulse Resp BP BP Pulse Ox 08/12/20 12:06 18 92 08/12/20 12:00 36.4 C L 93 18 132/79 H 86 L 08/12/20 10:58 150/84 H 08/12/20 09:00 36.3 C L 101 H 18 147/87 H 91 L Intake & Output: Intake & Output 08/09/20 08/10/20 08/11/20 08/12/20 23:59 23:59 23:59 23:59 Intake Total 825.889 9082 Balance 020.032 4392 - Objective General Appearance: positive: No acute distress, Alert. negative: Lethargic Eyes Bilateral: positive: Normal inspection, PERRL, No lid inflammation ENT: positive: ENT inspection nml, No signs of dehydration. negative: Purulent nasal drainage Neck: positive: Nml inspection, Trachea midline. negative: Thyromegaly, Tracheal deviation Respiratory: positive: Chest non-tender, No respiratory distress. negative: Wheezes, Rales Cardiovascular: positive: Regular rate & rhythm, No murmur. negative: Tachycardia, Bradycardia, Systolic murmur, Diastolic murmur Abdomen: positive: Non-tender, Nml bowel sounds, No distention. negative: Tenderness, Guarding Back: positive: Nml inspection. negative: CVA tenderness (R), CVA tenderness (L) Skin: positive: Color nml, Warm, Dry. negative: Cyanosis, Diaphoresis, Pallor Extremities: positive: Non-tender, Nml appearance. negative: Calf tenderness Neurologic/Psychiatric: positive: Oriented x3, Motor nml, Sensation nml, Mood/affect nml. negative: Weakness, Sensory loss, Facial droop, Slurred/abnml speech, Depressed mood/affect - Lab Results Fish Bones: 08/12/20 04:20 08/12/20 04:20 Other Labs: Lab Results x24hrs 08/12/20 08/12/20 08/12/20 Range/Units 04:20 04:20 04:20 WBC (4.8-10.8) x10^3/uL RBC (4.20-5.40) 10^6/uL Hgb (12.0-16.0) g/dL Hct (37.0-47.0) % MCV (81.0-99.0) fL MCH (27.0-31.0) pg MCHC (32.0-36.0) g/dL RDW (12.0-15.0) % Plt Count (130-450) 10^3/uL MPV (7.9-10.8) fL Neut # (Auto) Lymph # (Auto) [place] # (Auto) Eos # (Auto) Baso # (Auto) Absolute Nucleated RBC Total Counted Band Neuts % (Manual) (0 - 10) % Abnorm Lymph % (Manual) % Nucleated RBC % Neutrophils # (Manual) (1.5-6.6) 10^3/uL Lymphocytes # (Manual) (1.5-3.5) 10^3/uL Monocytes # (Manual) (0.0-1.0) 10^3/uL Eosinophils # (Manual) (0-0.7) 10^3/uL Basophils # (Manual) (0-0.1) 10^3/uL Differential Comment Platelet Estimate (NORMAL) RBC Morph Micro Appear (NORMAL) Sodium 136 (135-145) mmol/L Potassium 4.4 (3.5-5.0) mmol/L Chloride 107 (101-111) mmol/L Carbon Dioxide 20 L (21-32) mmol/L Anion Gap 9.0 (6-13) BUN 21 H (6-20) mg/dL Creatinine 0.8 (0.4-1.0) mg/dL Estimated GFR (MDRD) 71 L (>89) Glucose 156 H (70-100) mg/dL Calcium 8.7 (8.5-10.3) mg/dL Troponin I High Sens 15.6 H* (2.3-14.8) ng/L TSH < 0.08 L (0.34-5.60) uIU/mL 08/12/20 08/11/20 Range/Units 04:20 22:02 WBC 9.0 (4.8-10.8) x10^3/uL RBC 4.44 (4.20-5.40) 10^6/uL Hgb 12.7 (12.0-16.0) g/dL Hct 38.9 (37.0-47.0) % MCV 87.6 (81.0-99.0) fL MCH 28.6 (27.0-31.0) pg MCHC 32.6 (32.0-36.0) g/dL RDW 11.8 L (12.0-15.0) % Plt Count 227 (130-450) 10^3/uL MPV 9.6 (7.9-10.8) fL Neut # (Auto) Not Reportable Lymph # (Auto) Not Reportable [place] # (Auto) Not Reportable Eos # (Auto) Not Reportable Baso # (Auto) Not Reportable Absolute Nucleated RBC Not Reportable Total Counted 100 Band Neuts % (Manual) 4 (0 - 10) % Abnorm Lymph % (Manual) 0 % Nucleated RBC % Not Reportable Neutrophils # (Manual) 7.6 H (1.5-6.6) 10^3/uL Lymphocytes # (Manual) 0.8 L (1.5-3.5) 10^3/uL Monocytes # (Manual) 0.6 (0.0-1.0) 10^3/uL Eosinophils # (Manual) 0.0 (0-0.7) 10^3/uL Basophils # (Manual) 0.0 (0-0.1) 10^3/uL Differential Comment MANUAL DIFFERENTIAL Platelet Estimate NORMAL (130-450,000) (NORMAL) RBC Morph Micro Appear NORMAL APPEARANCE (NORMAL) Sodium (135-145) mmol/L Potassium (3.5-5.0) mmol/L Chloride (101-111) mmol/L Carbon Dioxide (21-32) mmol/L Anion Gap (6-13) BUN (6-20) mg/dL Creatinine (0.4-1.0) mg/dL Estimated GFR (MDRD) (>89) Glucose (70-100) mg/dL Calcium (8.5-10.3) mg/dL Troponin I High Sens 19.7 H* (2.3-14.8) ng/L TSH (0.34-5.60) uIU/mL ABX Reporting Has patient been on IV antibiotics over the past 48 hours?: Yes Sepsis Event Note (H) - Evaluation Current Stage of Sepsis: Ruled out Assessment/Plan - Problem List (1) Pneumonia due to COVID-19 virus Impression: 08/12 Patient's O2 sat dropped to 86% in room air without oxygen But saturation rise to 92 or 93% .On 2 L oxygen, also patient has no respiratory distress. We will still continue treatment with Decadron, with remdisiv, Lovenox. Continue intravenous IV fluids, continue antibiotics for possible coinfection with bacterial. Continue probiotics. 08/11 Nurse report patient had a 94% sat on 2 L of oxygen. Patient has no respiratory distress. We will continue Covid 19 treatment of Decadron and remdesvis, and Lovenox for DVT prophylaxis. Continue antibiotics For treatment of possible bacterial infection pneumonia Patient had a positive COVID-19 test 7 days ago, there are many patient present symptoms after 1 week. Patient show shortness breathing at the home then patient was brought to hospital. After the patient with oxygen, patient show hemodynamic stable, patient does not show respiratory distress at this point After she was given oxygen. Patient was already treated COVID-19 with with remdesivir, decadron and Lovenox in the ER. We will continue supplemental oxygen as needed, continue treat with remdesivir, decadron and Lovenox as DVT prophylaxis. Dr. Bullock asked to treat community-acquired pneumonia with azithromycin and Rocephin as well. Patient was prescribed probiotics (2) Hypoxemia Conclusion/Plan: 08/11, Patient feels comfortable, patient has no respiratory distress or shortness breathing, She had 94% sats on 2 L of oxygen. Continue treated pneumonia, Continue supplemental oxygen as needed Patient show 86% to 89% sats on room air in the ER, After she had 1 week tested positive for COVID-19. We will continue supplemental oxygen for patient, will continue treated COVID-19 with currently CDC recommended medications. We will closely monitor patient for her situation, carefully precaution of any deterioration Of respiratory status. (3)New afib with RVR 08/12 Heart rate Is controlled now. Continue metoprolol, Continue telemetry. 08/11 Patient Feel palpation, patient's heart rate was up to 130-140, EKG show patient had a fibrillation. Patient was unknown she had before. Chads score is 1, No anticoagulation indicated. We will give patient intravenous metoprolol, resume home metoprolol. Then patient heart rate is down less than 100, And patient feels much better. 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 Continue vital signs monitor Patient blood pressure is stable now. we will continue patient home blood pressure medicine after Confirmed (5) Asthma Conclusion/Plan: Patient has history of asthma, we will order albuterol MDI, Continue Decadron. 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
[2020-08-12] MEDS: traZODone 50 MG TABLET PO SCH (21:19)
[2020-08-13] MEDS: SODIUM CHLORIDE FLUSH 0.9% 10 ML SYRINGE IVP SCH ×3 (00:50→16:44)
[2020-08-13 05:20] LABS: BASOPHILS % (AUTO) 0.3 %; HGB - HEMOGLOBIN 12.1 g/dL (12.0-16.0); LYMPHOCYTES % (AUTO) 11.2 %; MEAN CORPUSCULAR HEMOGLOBIN 28.4 pg (27.0-31.0); MEAN CORPUSCULAR HGB CONC 32.1 g/dL (32.0-36.0); MEAN CORPUSCULAR VOLUME 88.5 fL (81.0-99.0); MEAN PLATELET VOLUME 9.2 fL (7.9-10.8); MONOCYTES % (AUTO) 5.5 %; NEUTROPHILS % (AUTO) 81.5 %; PLT - PLATELET COUNT 261 10^3/uL (130-450); RED BLOOD COUNT 4.26 10^6/uL (4.20-5.40); RED CELL DISTRIBUTION WIDTH 11.9 % (12.0-15.0); WHITE BLOOD COUNT 8.9 x10^3/uL (4.8-10.8)
[2020-08-13 05:24] LABS: CREATININE 0.8 mg/dL (0.4-1.0)
[2020-08-13 05:29] LABS: ABNORMAL LYMPHS % (MANUAL) 0 %; BAND NEUTROPHILS % (MANUAL) 0 %
[2020-08-13 06:47] LABS: LYMPHOCYTES # (MANUAL) 0.7 10^3/uL (1.5-3.5); LYMPHOCYTES % (MANUAL) 8 %; MONOCYTES # (MANUAL) 0.2 10^3/uL (0.0-1.0); PLATELET ESTIMATE, MANUAL NORMAL (130-450,000) (NORMAL); PLATELET MORPHOLOGY NORMAL APPEARANCE (NORMAL); RBC MORPHOLOGY (MULTIPLE) NORMAL APPEARANCE (NORMAL)
[2020-08-13 06:48] LABS: DIFFERENTIAL COMMENT MANUAL DIFFERENTIAL
[2020-08-13] MEDS: PANTOPRAZOLE 40 MG TABLET PO SCH (07:03)
--- NOTE | 2020-08-13 08:52 | PROVIDER PROGRESS NOTE ---
Assessment/Plan - Problem List (1) Pneumonia due to COVID-19 virus Assessment/Plan: Patient is on 1 L of oxygen via nasal cannula and maintaining her oxygen saturation R 91%. Remdesivir day 4 of 5. Decadron 6 mg IV daily. Also empirically treating patient for possible bacterial pneumonia with Rocephin and azithromycin. Patient will complete azithromycin tomorrow. (2) Hypoxemia Assessment/Plan: Secondary to COVID-19 pneumonia. Patient is on 1 L of oxygen via nasal cannula and maintaining her oxygen saturation greater than 91%. We will continue to monitor and treat accordingly. (3) Asthma Assessment/Plan: Not in exacerbation. We will continue albuterol MDI, Decadron and supplemental oxygen as needed. (4) Hyponatremia Assessment/Plan: Thought to be secondary to hypovolemic hyponatremia. Improving with IV hydration. Patient's sodium upon presentation was 128. Currently sodium level is 134. We will continue to monitor. (5) Hypertension Assessment/Plan: On lisinopril 20 mg p.o. daily. On metoprolol tartrate 37.5 mg p.o. twice daily. - Current Meds Current Meds: Current Medications Generic Name Dose Route Start Last Admin Trade Name Freq PRN Reason Stop Dose Admin Albuterol 2 puffs 08/11/20 08:28 08/11/20 08:49 Albuterol 1 Puff INH 08/18/20 08:27 2 puffs RTQ4H PRN Administration Dyspnea Aspirin 325 mg 08/12/20 09:00 08/12/20 10:58 Aspirin Ec 325 Mg Tablet PO 325 mg DAILY PAULIE Administration Azithromycin 250 mg 08/11/20 09:00 08/12/20 10:58 Azithromycin 250 Mg Tablet PO 08/14/20 09:01 250 mg DAILY PAULIE Administration Dexamethasone 6 mg 08/11/20 09:30 08/12/20 11:01 Dexamethasone 10 Mg/Ml Vial IVP 08/14/20 12:00 6 mg DAILY PAULIE Administration Enoxaparin Sodium 40 mg 08/11/20 09:00 08/12/20 11:00 Enoxaparin 40 Mg/0.4 Ml Syringe SUBQ 40 mg DAILY PAULIE Administration Ceftriaxone Sodium 2 gm/ 100 mls @ 200 mls/hr 08/11/20 09:00 08/12/20 11:35 Sodium Chloride IV 08/14/20 09:29 Infused DAILY PAULIE Infusion Remdesivir 100 mg/ Sodium 100 mls @ 200 mls/hr 08/11/20 09:00 08/12/20 15:04 Chloride IV 08/14/20 09:29 Infused DAILY PAULIE Infusion Sodium Chloride 1,000 mls @ 83.333 mls/hr 08/12/20 09:00 08/12/20 21:46 Normal Saline 0.9% IV 08/13/20 08:59 83.333 mls/hr .Q12H PAULIE Administration Lisinopril 20 mg 08/11/20 14:46 08/12/20 10:58 Lisinopril 20 Mg Tablet PO 20 mg DAILY PAULIE Administration Metoprolol Tartrate 37.5 mg 08/11/20 21:00 08/12/20 21:18 Metoprolol Tartrate 25 Mg Tablet PO 37.5 mg BID PAULIE Administration Pantoprazole Sodium 40 mg 08/11/20 07:00 08/13/20 07:03 Pantoprazole 40 Mg Tablet PO 40 mg QDAC PAULIE Administration Saccharomyces Boulardii 250 mg 08/11/20 08:00 08/12/20 16:59 Saccharomyces Boulardii 250 Mg Capsule PO 250 mg BIDWM PAULIE Administration Sodium Chloride 10 ml 08/10/20 17:00 08/13/20 00:50 Sodium Chloride Flush 0.9% 10 Ml Syringe IVP 10 ml 0100,0900,1700 PAULIE Administration Trazodone HCl 50 mg 08/10/20 21:00 08/12/20 21:19 Trazodone 50 Mg Tablet PO 50 mg QPM PAULIE Administration - Lab Result Fish Bone Diagrams: 08/13/20 04:30 08/13/20 04:30 Subjective - Subjective Patient Reports: Other (She was resting comfortably at the time of exam. She denied any dyspnea, chest pain, fever or chills.) Objective Vital Signs: Vital Signs - 24 hr 08/12/20 08/12/20 08/12/20 09:00 10:09 10:58 Temperature 36.3 C L Heart Rate 85 Heart Rate [ 101 H Brachial] Respiratory 18 16 Rate Blood Pressure 150/84 H Blood Pressure 147/87 H [Right Brachial artery] O2 Saturation 91 L 08/12/20 08/12/20 08/12/20 12:00 12:06 17:00 Temperature 36.4 C L 36.2 C L Heart Rate Heart Rate [ 93 82 Brachial] Respiratory 18 18 20 Rate Blood Pressure Blood Pressure 132/79 H 166/93 H [Right Brachial artery] O2 Saturation 86 L 92 92 08/12/20 08/12/20 08/13/20 20:30 20:34 01:00 Temperature 36.3 C L 36.3 C L Heart Rate 80 Heart Rate [ 80 70 Brachial] Respiratory 18 18 20 Rate Blood Pressure Blood Pressure 135/80 H 141/83 H [Right Brachial artery] O2 Saturation 93 95 08/13/20 08/13/20 06:19 08:00 Temperature 36.6 C 36.3 C L Heart Rate Heart Rate [ 74 106 H Brachial] Respiratory 18 18 Rate Blood Pressure Blood Pressure 159/82 H 167/87 H [Right Brachial artery] O2 Saturation 93 94 Oxygen O2 Source Nasal cannula I&O (Last 24 Hrs): Intake and Output Totals x24h 08/11/20 08/12/20 08/13/20 23:59 23:59 23:59 Intake Total 2995 1734.441 300 Balance 2995 1734.441 300 General: Alert, Oriented x3, Cooperative, No acute distress HEENT: Atraumatic, PERRLA, EOMI Neuro: Alert, Non Focal, Oriented Times 3 Cardiovascular: Regular rate, Normal S1, Normal S2 Respiratory: Wheezes (Mild crackles in lung bases bilaterally.) Abdomen: Normal bowel sounds, Soft, No tenderness Extremities: No clubbing, No cyanosis, Other (Mild nonpitting edema on the left greater than right.) - Results Results: Laboratory Results WBC 8.9 x10^3/uL (4.8-10.8) 08/13/20 04:30 RBC 4.26 10^6/uL (4.20-5.40) 08/13/20 04:30 Hgb 12.1 g/dL (12.0-16.0) 08/13/20 04:30 Hct 37.7 % (37.0-47.0) 08/13/20 04:30 MCV 88.5 fL (81.0-99.0) 08/13/20 04:30 MCH 28.4 pg (27.0-31.0) 08/13/20 04:30 MCHC 32.1 g/dL (32.0-36.0) 08/13/20 04:30 RDW 11.9 % (12.0-15.0) L 08/13/20 04:30 Plt Count 261 10^3/uL (130-450) 08/13/20 04:30 MPV 9.2 fL (7.9-10.8) 08/13/20 04:30 Neut # (Auto) Not Reportable 08/13/20 04:30 Lymph # (Auto) Not Reportable 08/13/20 04:30 [place] # (Auto) Not Reportable 08/13/20 04:30 Eos # (Auto) Not Reportable 08/13/20 04:30 Baso # (Auto) Not Reportable 08/13/20 04:30 Absolute Nucleated RBC Not Reportable 08/13/20 04:30 Total Counted 100 08/13/20 04:30 Band Neuts % (Manual) 0 % (0-10) 08/13/20 04:30 Abnorm Lymph % (Manual) 0 % 08/13/20 04:30 Metamyelocytes % 1 % (-0) H 08/11/20 04:05 Nucleated RBC % Not Reportable 08/13/20 04:30 Neutrophils # (Manual) 8.0 10^3/uL (1.5-6.6) H 08/13/20 04:30 Lymphocytes # (Manual) 0.7 10^3/uL (1.5-3.5) L 08/13/20 04:30 Monocytes # (Manual) 0.2 10^3/uL (0.0-1.0) 08/13/20 04:30 Eosinophils # (Manual) 0.0 10^3/uL (0-0.7) 08/13/20 04:30 Basophils # (Manual) 0.0 10^3/uL (0-0.1) 08/13/20 04:30 Differential Comment MANUAL DIFFERENTIAL 08/13/20 04:30 WBC Morphology NORMAL APPEARANCE (NORMAL) 08/13/20 04:30 Platelet Estimate NORMAL (130-450,000) (NORMAL) 08/13/20 04:30 Platelet Morphology NORMAL APPEARANCE (NORMAL) 08/13/20 04:30 RBC Morph Micro Appear NORMAL APPEARANCE (NORMAL) 08/13/20 04:30 Sodium 134 mmol/L (135-145) L 08/13/20 04:30 Potassium 4.2 mmol/L (3.5-5.0) 08/13/20 04:30 Chloride 107 mmol/L (101-111) 08/13/20 04:30 Carbon Dioxide 21 mmol/L (21-32) 08/13/20 04:30 Anion Gap 6.0 (6-13) 08/13/20 04:30 BUN 22 mg/dL (6-20) H 08/13/20 04:30 Creatinine 0.8 mg/dL (0.4-1.0) 08/13/20 04:30 Estimated GFR (MDRD) 71 (>89) L 08/13/20 04:30 Glucose 149 mg/dL (70-100) H 08/13/20 04:30 Lactic Acid 1.2 mmol/L (0.5-2.2) 08/10/20 13:40 Calcium 8.0 mg/dL (8.5-10.3) L 08/13/20 04:30 Total Bilirubin 0.6 mg/dL (0.2-1.0) 08/10/20 14:15 AST 47 IU/L (10-42) H 08/10/20 14:15 ALT 25 IU/L (10-60) 08/10/20 14:15 Alkaline Phosphatase 86 IU/L (42-121) 08/10/20 14:15 Troponin I High Sens 15.6 ng/L (2.3-14.8) H* 08/12/20 04:20 Total Protein 7.6 g/dL (6.7-8.2) 08/10/20 14:15 Albumin 3.2 g/dL (3.2-5.5) 08/10/20 14:15 Globulin 4.4 g/dL (2.1-4.2) H 08/10/20 14:15 Albumin/Globulin Ratio 0.7 (1.0-2.2) L 08/10/20 14:15 Lipase 160 U/L (22-51) H 08/10/20 14:15 TSH < 0.08 uIU/mL (0.34-5.60) L 08/12/20 04:20 Free T4 1.77 ng/dL (0.58-1.64) H 08/13/20 04:30 Sepsis Event Note (H) - Evaluation Current Stage of Sepsis: Ruled out
[2020-08-13] MEDS: SACCHAROMYCES BOULARDII 250 MG CAPSULE PO SCH ×2 (09:34→16:44)
[2020-08-13] MEDS: ASPIRIN EC 325 MG TABLET PO SCH (09:34)
[2020-08-13] MEDS: AZITHROMYCIN 250 MG TABLET PO SCH (09:35)
[2020-08-13] MEDS: cefTRIAXone 2 GM in SODIUM CHLORIDE 0.9% MINIBAG 100 ML IV SCH (09:35)
[2020-08-13] MEDS: lisinopriL 20 MG TABLET PO SCH (09:40)
[2020-08-13] MEDS: ENOXAPARIN 40 MG/0.4 ML SYRINGE SUBQ SCH (09:41)
[2020-08-13] MEDS: DEXAMETHASONE 10 MG/ML VIAL IVP SCH (09:41)
[2020-08-13] MEDS: METOPROLOL TARTRATE 25 MG TABLET PO SCH ×2 (09:49→21:05)
[2020-08-13] MEDS: REMDESIVIR 100MG VIAL 100 MG in SODIUM CHLORIDE 0.9% 100ML 100 ML IV SCH (10:06)
[2020-08-13] MEDS: traZODone 50 MG TABLET PO SCH (21:05)
[2020-08-14] MEDS: SODIUM CHLORIDE FLUSH 0.9% 10 ML SYRINGE IVP SCH ×3 (02:29→17:37)
[2020-08-14 05:29] LABS: BASOPHILS % (AUTO) 0.1 %; HGB - HEMOGLOBIN 12.2 g/dL (12.0-16.0); LYMPHOCYTES % (AUTO) 11.2 %; MEAN CORPUSCULAR HEMOGLOBIN 28.8 pg (27.0-31.0); MEAN CORPUSCULAR HGB CONC 33.4 g/dL (32.0-36.0); MEAN CORPUSCULAR VOLUME 86.1 fL (81.0-99.0); MONOCYTES % (AUTO) 9.1 %; NEUTROPHILS % (AUTO) 78.3 %; PLT - PLATELET COUNT 255 10^3/uL (130-450); RED BLOOD COUNT 4.24 10^6/uL (4.20-5.40); RED CELL DISTRIBUTION WIDTH 11.7 % (12.0-15.0); WHITE BLOOD COUNT 7.7 x10^3/uL (4.8-10.8)
[2020-08-14 05:37] LABS: CALCIUM 8.3 mg/dL (8.5-10.3); CREATININE 0.7 mg/dL (0.4-1.0)
[2020-08-14 06:35] LABS: DIFFERENTIAL COMMENT MANUAL DIFFERENTIAL; PLATELET ESTIMATE, MANUAL NORMAL (130-450,000) (NORMAL); PLATELET MORPHOLOGY NORMAL APPEARANCE (NORMAL); RBC MORPHOLOGY (MULTIPLE) NORMAL APPEARANCE (NORMAL)
[2020-08-14] MEDS: PANTOPRAZOLE 40 MG TABLET PO SCH (06:54)
[2020-08-14] MEDS: cefTRIAXone 2 GM in SODIUM CHLORIDE 0.9% MINIBAG 100 ML IV SCH (09:18)
[2020-08-14] MEDS: REMDESIVIR 100MG VIAL 100 MG in SODIUM CHLORIDE 0.9% 100ML 100 ML IV SCH (09:20)
[2020-08-14] MEDS: AZITHROMYCIN 250 MG TABLET PO SCH (09:24)
[2020-08-14] MEDS: SACCHAROMYCES BOULARDII 250 MG CAPSULE PO SCH ×2 (09:25→17:36)
[2020-08-14] MEDS: lisinopriL 20 MG TABLET PO SCH (09:25)
[2020-08-14] MEDS: METOPROLOL TARTRATE 25 MG TABLET PO SCH ×2 (09:25→21:43)
[2020-08-14] MEDS: ENOXAPARIN 40 MG/0.4 ML SYRINGE SUBQ SCH (09:27)
[2020-08-14] MEDS: ASPIRIN EC 325 MG TABLET PO SCH (09:27)
[2020-08-14] MEDS: DEXAMETHASONE 10 MG/ML VIAL IVP SCH (09:27)
--- NOTE | 2020-08-14 18:09 | PROVIDER PROGRESS NOTE ---
Assessment/Plan - Problem List (1) Pneumonia due to COVID-19 virus Assessment/Plan: Patient is on 1 L of oxygen via nasal cannula and maintaining her oxygen saturation R 91%. Remdesivir day 5 of 5. Decadron 6 mg IV daily. Patient completed antibiotics today. Anticipated discharge tomorrow.. (2) Hypoxemia Assessment/Plan: Secondary to COVID-19 pneumonia. Patient is on 1 L of oxygen via nasal cannula and maintaining her oxygen saturation greater than 91%. We will continue to monitor and treat accordingly. (3) Asthma Assessment/Plan: Not in exacerbation. We will continue albuterol MDI, Decadron and supplemental oxygen as needed. (4) Hyponatremia Assessment/Plan: Thought to be secondary to hypovolemic hyponatremia. Improving with IV hydration. Patient's sodium upon presentation was 128. Currently sodium level is 134. We will continue to monitor. (5) Hypertension Assessment/Plan: On lisinopril 20 mg p.o. daily. On metoprolol tartrate 37.5 mg p.o. twice daily. - Current Meds Current Meds: Current Medications Generic Name Dose Route Start Last Admin Trade Name Freq PRN Reason Stop Dose Admin Albuterol 2 puffs 08/11/20 08:28 08/11/20 08:49 Albuterol 1 Puff INH 08/18/20 08:27 2 puffs RTQ4H PRN Administration Dyspnea Aspirin 325 mg 08/12/20 09:00 08/14/20 09:27 Aspirin Ec 325 Mg Tablet PO 325 mg DAILY PAULIE Administration Enoxaparin Sodium 40 mg 08/11/20 09:00 08/14/20 09:27 Enoxaparin 40 Mg/0.4 Ml Syringe SUBQ 40 mg DAILY PAULIE Administration Lisinopril 20 mg 08/11/20 14:46 08/14/20 09:25 Lisinopril 20 Mg Tablet PO 20 mg DAILY PAULIE Administration Metoprolol Tartrate 37.5 mg 08/11/20 21:00 08/14/20 09:25 Metoprolol Tartrate 25 Mg Tablet PO 37.5 mg BID PAULIE Administration Pantoprazole Sodium 40 mg 08/11/20 07:00 08/14/20 06:54 Pantoprazole 40 Mg Tablet PO 40 mg QDAC PAULIE Administration Saccharomyces Boulardii 250 mg 08/11/20 08:00 08/14/20 17:36 Leonel Wasserman 250 Mg Capsule PO 250 mg BIDWM PAULIE Administration Sodium Chloride 10 ml 08/10/20 17:00 08/14/20 17:37 Sodium Chloride Flush 0.9% 10 Ml Syringe IVP 10 ml 0100,0900,1700 PAULIE Administration Trazodone HCl 50 mg 08/10/20 21:00 08/13/20 21:05 Trazodone 50 Mg Tablet PO 50 mg QPM PAULIE Administration - Lab Result Fish Bone Diagrams: 08/15/20 06:00 08/15/20 06:00 Subjective - Subjective Patient Reports: Other (She was resting comfortably at the time of exam. She denied any dyspnea, chest pain, fever or chills.) Objective Vital Signs: Vital Signs - 24 hr 08/13/20 08/14/20 08/14/20 19:48 00:13 06:29 Temperature 36.4 C L 36.2 C L 36.6 C Heart Rate Heart Rate [ 80 70 73 Brachial] Respiratory 18 16 18 Rate Blood Pressure Blood Pressure 137/73 H 133/70 H 150/80 H [Right Brachial artery] O2 Saturation 94 93 96 08/14/20 08/14/20 08/14/20 08:00 09:15 09:25 Temperature 36.5 C Heart Rate 81 Heart Rate [ 83 Brachial] Respiratory 16 20 Rate Blood Pressure 144/74 H Blood Pressure 144/74 H [Right Brachial artery] O2 Saturation 95 08/14/20 08/14/20 11:23 17:00 Temperature 36.6 C 36.6 C Heart Rate Heart Rate [ 69 79 Brachial] Respiratory 20 14 Rate Blood Pressure Blood Pressure 146/76 H 143/76 H [Right Brachial artery] O2 Saturation 91 L 94 Oxygen O2 Source Nasal cannula I&O (Last 24 Hrs): Intake and Output Totals x24h 08/12/20 08/13/20 08/14/20 23:59 23:59 23:59 Intake Total 6655.605 5644 1280 Balance 8547.426 1198 1280 Comments/Notes: General: Alert, Oriented x3, Cooperative, No acute distress HEENT: Atraumatic, PERRLA, EOMI Neuro: Alert, Non Focal, Oriented Times 3 Cardiovascular: Regular rate, Normal S1, Normal S2 Respiratory: Wheezes (Mild crackles in lung bases bilaterally.) Abdomen: Normal bowel sounds, Soft, No tenderness Extremities: No clubbing, No cyanosis, Other (Mild nonpitting edema on the left greater than right.) - Results Results: Laboratory Results WBC 7.7 x10^3/uL (4.8-10.8) 08/14/20 04:39 RBC 4.24 10^6/uL (4.20-5.40) 08/14/20 04:39 Hgb 12.2 g/dL (12.0-16.0) 08/14/20 04:39 Hct 36.5 % (37.0-47.0) L 08/14/20 04:39 MCV 86.1 fL (81.0-99.0) 08/14/20 04:39 MCH 28.8 pg (27.0-31.0) 08/14/20 04:39 MCHC 33.4 g/dL (32.0-36.0) 08/14/20 04:39 RDW 11.7 % (12.0-15.0) L 08/14/20 04:39 Plt Count 255 10^3/uL (130-450) 08/14/20 04:39 MPV 9.0 fL (7.9-10.8) 08/14/20 04:39 Neut # (Auto) Not Reportable 08/14/20 04:39 Lymph # (Auto) Not Reportable 08/14/20 04:39 [place] # (Auto) Not Reportable 08/14/20 04:39 Eos # (Auto) Not Reportable 08/14/20 04:39 Baso # (Auto) Not Reportable 08/14/20 04:39 Absolute Nucleated RBC Not Reportable 08/14/20 04:39 Total Counted 100 08/13/20 04:30 Band Neuts % (Manual) Not Reportable 08/14/20 04:39 Abnorm Lymph % (Manual) Not Reportable 08/14/20 04:39 Metamyelocytes % 1 % (-0) H 08/11/20 04:05 Nucleated RBC % Not Reportable 08/14/20 04:39 Neutrophils # (Manual) Not Reportable 08/14/20 04:39 Lymphocytes # (Manual) Not Reportable 08/14/20 04:39 Monocytes # (Manual) Not Reportable 08/14/20 04:39 Eosinophils # (Manual) Not Reportable 08/14/20 04:39 Basophils # (Manual) Not Reportable 08/14/20 04:39 Differential Comment MANUAL DIFFERENTIAL 08/14/20 04:39 WBC Morphology NORMAL APPEARANCE (NORMAL) 08/14/20 04:39 Platelet Estimate NORMAL (130-450,000) (NORMAL) 08/14/20 04:39 Platelet Morphology NORMAL APPEARANCE (NORMAL) 08/14/20 04:39 RBC Morph Micro Appear NORMAL APPEARANCE (NORMAL) 08/14/20 04:39 Sodium 136 mmol/L (135-145) 08/14/20 04:39 Potassium 4.0 mmol/L (3.5-5.0) 08/14/20 04:39 Chloride 105 mmol/L (101-111) 08/14/20 04:39 Carbon Dioxide 22 mmol/L (21-32) 08/14/20 04:39 Anion Gap 9.0 (6-13) 08/14/20 04:39 BUN 19 mg/dL (6-20) 08/14/20 04:39 Creatinine 0.7 mg/dL (0.4-1.0) 08/14/20 04:39 Estimated GFR (MDRD) 83 (>89) L 08/14/20 04:39 Glucose 132 mg/dL (70-100) H 08/14/20 04:39 Lactic Acid 1.2 mmol/L (0.5-2.2) 08/10/20 13:40 Calcium 8.3 mg/dL (8.5-10.3) L 08/14/20 04:39 Total Bilirubin 0.6 mg/dL (0.2-1.0) 08/10/20 14:15 AST 47 IU/L (10-42) H 08/10/20 14:15 ALT 25 IU/L (10-60) 08/10/20 14:15 Alkaline Phosphatase 86 IU/L (42-121) 08/10/20 14:15 Troponin I High Sens 15.6 ng/L (2.3-14.8) H* 08/12/20 04:20 Total Protein 7.6 g/dL (6.7-8.2) 08/10/20 14:15 Albumin 3.2 g/dL (3.2-5.5) 08/10/20 14:15 Globulin 4.4 g/dL (2.1-4.2) H 08/10/20 14:15 Albumin/Globulin Ratio 0.7 (1.0-2.2) L 08/10/20 14:15 Lipase 160 U/L (22-51) H 08/10/20 14:15 TSH < 0.08 uIU/mL (0.34-5.60) L 08/12/20 04:20 Free T4 1.77 ng/dL (0.58-1.64) H 08/13/20 04:30 Sepsis Event Note (H) - Evaluation Current Stage of Sepsis: Ruled out ABX Reporting Has patient been on IV antibiotics over the past 48 hours?: No
[2020-08-14] MEDS: traZODone 50 MG TABLET PO SCH (21:43)
[2020-08-15 06:13] LABS: BASOPHILS % (AUTO) 0.2 %; HGB - HEMOGLOBIN 12.5 g/dL (12.0-16.0); LYMPHOCYTES # (AUTO) 0.8 10^3/uL (1.5-3.5); LYMPHOCYTES % (AUTO) 11.8 %; MEAN CORPUSCULAR HEMOGLOBIN 29.2 pg (27.0-31.0); MEAN CORPUSCULAR HGB CONC 34.1 g/dL (32.0-36.0); MEAN CORPUSCULAR VOLUME 85.7 fL (81.0-99.0); MEAN PLATELET VOLUME 8.8 fL (7.9-10.8); MONOCYTES # (AUTO) 0.8 10^3/uL (0.0-1.0); MONOCYTES % (AUTO) 12.6 %; NEUTROPHILS # (AUTO) 4.9 10^3/uL (1.5-6.6); NEUTROPHILS % (AUTO) 73.6 %; PLT - PLATELET COUNT 269 10^3/uL (130-450); RED BLOOD COUNT 4.28 10^6/uL (4.20-5.40); RED CELL DISTRIBUTION WIDTH 11.8 % (12.0-15.0); WHITE BLOOD COUNT 6.6 x10^3/uL (4.8-10.8)
[2020-08-15 06:20] LABS: CALCIUM 8.2 mg/dL (8.5-10.3); CREATININE 0.7 mg/dL (0.4-1.0)
[2020-08-15] MEDS: SODIUM CHLORIDE FLUSH 0.9% 10 ML SYRINGE IVP SCH ×2 (06:54→08:33)
[2020-08-15] MEDS: PANTOPRAZOLE 40 MG TABLET PO SCH (06:54)
[2020-08-15 07:24] LABS: PLATELET ESTIMATE, MANUAL NORMAL (130-450,000) (NORMAL); PLATELET MORPHOLOGY NORMAL APPEARANCE (NORMAL); RBC MORPHOLOGY (MULTIPLE) NORMAL APPEARANCE (NORMAL)
[2020-08-15] MEDS: lisinopriL 20 MG TABLET PO SCH (08:32)
[2020-08-15] MEDS: SACCHAROMYCES BOULARDII 250 MG CAPSULE PO SCH (08:32)
[2020-08-15] MEDS: ASPIRIN EC 325 MG TABLET PO SCH (08:33)
[2020-08-15] MEDS: METOPROLOL TARTRATE 25 MG TABLET PO SCH (08:33)
[2020-08-15] MEDS: ENOXAPARIN 40 MG/0.4 ML SYRINGE SUBQ SCH (08:33)
--- NOTE | 2020-08-15 10:19 | DISCHARGE SUMMARY ---
"Discharge Summary Admit Date: 08/10/20 Discharge Date: 08/15/20 Discharging Provider: Ros Jackson MD Primary Care Provider: Naz Allen (fax [phone]) Code Status: Attempt Resuscitation Condition at Discharge: Fair Discharge Disposition: 01 Home, Self Care - DIAGNOSES Discharge Diagnoses with Status of Each Condition: 1. Pneumonia due to COVID-19 virus 2. Hypoxemia 3. Asthma, not in exacerbation 4. Hyponatremia 5. Hypertension 6. Elevated troponin at 15.6 7. Hyperglycemia - HPI History of Present Illness: This is a 69-year-old woman with history of asthma And hypertension He waswas diagnosed with COVID-19 7 days ago by outpatient swab. Since yesterday she has had progressive shortness of breath, both at rest and with exertion, And diarrhea on today. Patient was Noted by EMS to have a room air saturation of 83% which responded well to supplemental oxygen, after 15 L nonrebreather mask her sats [place] to 98%. She denies cough, Fever, Chest pain, Nausea or vomiting. In the ER patient has no tachycardia or tachypnea, afebrile. She has 86 to 89% o2 saturation on room air. After 2 L oxygen with nasal cannula, her O2 saturation rise to 98%. Routine laboratory tests show was unremarkable except sodium 128. Given above medical condition, medical team was called for admission. Discussed the care goal with the patient, patient request full code. History - Past Medical History Cardiovascular: reports: None Respiratory: reports: None Endocrine/Autoimmune: reports: None GI: reports: None PHYSIOTHERAPY ASSISTANT: reports: None : reports: None HEENT: reports: None Psych: reports: None Musculoskeletal: reports: None Derm: reports: None - CONSULTS | PROCEDURES Procedures: 1. Chest x-ray with bilateral pulmonary and retrocardiac retrocardiac opacity suggestive of pneumonia. Underlying edema or atelectasis cannot be excluded. 2. Blood cultures negative after 2 days 3.Oxygen desaturation test Was done at discharge. She is 92% on room air. With walking 100 feet she dropped to 90%. As such she does not require oxygen. - HOSPITAL COURSE Hospital Course: She was placed in the hospital for pneumonia due to COVID-19. This was associated with mild to moderate hypoxemia. She was treated empirically with remdesivir and Decadron. She also received empiric treatment with Rocephin and azithromycin. She completed 5 days of azithromycin as well.. She had mild generalized weakness, fatigue, and hypoxia during her stay. But she was able to ambulate in her room, and gradually need less oxygen. Blood cultures were negative. Asthma was not a problem during her stay. There was no exacerbation. She was continued on nebulizers as needed. Hyponatremia was thought to be secondary to hypovolemic hyponatremia. It improved with high duration. At discharge she was 134. Hypertension was controlled with her lisinopril and metoprolol.She was noted to have hyperglycemia during her stay. It ranged from 130-188. This could have been due to Decadron. She does not have a history of diabetes. I would recommend she have an A1c and a glucose checked in the next few weeks. At discharge she is resting comfortably. No tachypnea or fever. She is alert and oriented. Neck is supple without JVD. Lungs are clear. With walking around the room to the bathroom, she does not need assist but she is occasionally dyspneic. She is easily fatigued. She has a regular rate and rhythm. Abdomen is benign with normal bowel sounds. Nondistended. There is no edema on extremities. She has occasional ecchymosis where her blood draws were done and where she had IVs. She is alert, oriented.Desaturation test showed her not to need oxygen at discharge. Greater than 30 minutes was spent coordinating discharge. - ALLERGIES Allergies/Adverse Reactions: Allergies Allergy/AdvReac Type Severity Reaction Status Date / Time No Known Drug Allergies Allergy Verified 08/10/20 13:16 - MEDICATIONS Home Medications: Ambulatory Orders Medication Instructions Recorded Confirmed Albuterol Sulfate [Proair Hfa 1 puffs INH Q4H PRN 08/10/20 08/12/20 Inhaler] Fluticasone Propion/Salmeterol 1 puffs INH BID 08/10/20 08/12/20 [Wixela 250-50 Inhub] Lisinopril [Zestril] 20 mg PO DAILY 08/10/20 08/12/20 Metoprolol Tartrate [Lopressor] 25 mg PO BID 08/10/20 08/12/20 Acetaminophen [Tylenol] 650 mg PO Q4HR PRN tablet 08/15/20 Aspirin EC [Ecotrin] 325 mg PO DAILY tablet 08/15/20 Melatonin/Pyridoxine [Melatonin 5 1 each PO QPM #30 tablet 08/15/20 mg Tablet] Saccharomyces Boulardii [Florastor] 250 mg PO BIDWM capsule 08/15/20 - LABS Result Diagrams: 08/15/20 06:00 08/15/20 06:00 - SEPSIS Current Stage of Sepsis: Ruled out"
--- NOTE | 2020-08-15 10:26 | Discharge Plan ---
Discharge Plan Problem Reviewed?: Yes Disposition: Home, Self Care Condition: Fair Prescriptions: Melatonin/Pyridoxine [Melatonin 5 mg Tablet] 1 each PO QPM #30 tablet Diet: Regular Activity Restrictions: Activity as Tolerated Shower Restrictions: No Driving Restrictions: No Health Concerns: You were diagnosed with Covid after presenting with symptoms 7 days prior to admission. You have a history of asthma. The day before admission you started having more and more shortness of breath that was happening at rest and with doing simple things. Diarrhea started on the day of admission. You called EMS and they found you to have a low oxygen level needing oxygen. You came to the emergency room and we found you to have bilateral pneumonia due to Covid 19. You were treated with steroids, remdesivir. You have gradually improved and feels safe enough to go home but you still have changes on your chest x-ray and you still need a little bit of oxygen to go home with. Plan of Treatment: 1. You have completed the remdesivir and the steroids in the hospital. You do not need further special medication for COVID-19. 2. Continue to take your albuterol inhalers at home as needed for wheezing 3. COVID-19 is associated with occasional blood clot formation so we are asking you to take a daily aspirin of 325 mg a day for the next 2 weeks with food 4. COVID-19 is also associated with insomnia and difficulty sleeping. We would like you to take a melatonin tablet every night before bedtime. It is not a sleeping pill but helps regulate your sleep cycle and seems to help quite a bit during COVID-19 with preliminary studies showing this. 5. Please see your primary care provider, Naz Bruner, in follow-up in the next 1 week. 6. We thought that you would need oxygen at discharge. Medicare and insurance pays for oxygen when the patient's saturations dropped below 88 to 89%. When you are sitting, resting, your room air saturation was 92%. We had you walk for a few minutes and 100 feet and your saturation dropped to 90% on room air. As such you do not need oxygen at discharge. Care Goals: To regain your baseline status within the next month. Assessment: Patient understands care goals and will follow through No Smoking: If you smoke, Please STOP! Call for help. Follow-up with: Naz Bruner PA-C [Primary Care Provider] -
[2020-08-15 13:30] VITALS: BP 140/79
== END 2020-08-15 14:27 | disposition home or self-care (01) | DRG 177 ==
LOC: EDUNIT# → EDSEX → ED 13:11 → MS3 15:20 → UNDOADMIN 15:20
PROVIDERS: ADMIT Nurse Practitioner Gerontology; ATTEND Specialist
PROC: XW033E5 Introduction of Remdesivir Anti-infective into Peripheral Vein, Percutaneous Approach, New Technology Group 5 (ICD-10-PCS; principal; 2020-08-10)
DX: U07.1 COVID-19 (principal); J12.82 Pneumonia due to coronavirus disease 2019; E87.1 Hypo-osmolality and hyponatremia; I48.91 Unspecified atrial fibrillation; R09.02 Hypoxemia; J45.909 Unspecified asthma, uncomplicated; I10 Essential (primary) hypertension; R73.9 Hyperglycemia, unspecified; R77.8 Other specified abnormalities of plasma proteins; Z79.51 Long term (current) use of inhaled steroids; Z79.899 Other long term (current) drug therapy
CPT/HCPCS: 36415; 71045; 80048; 80053; 83605; 83690; 84439; 84443; 84484; 85025; 87040; 93005; 94640; 94761; 96372; 96374; 99284; 99285; A9270; C9399; J1650

== ENCOUNTER 2021-01-20 11:30 | Outpatient (CLI) | payer MEDICARE, OTHER ==
--- NOTE | 2021-01-20 17:03 | XRAY Report ---
PROCEDURE: Knee 3 View RT INDICATIONS: RIGHT KNEE PAIN TECHNIQUE: 3 views of the right knee(s) were acquired. COMPARISON: None. FINDINGS: Bones: No fractures or dislocations. No suspicious bony lesions. The compartment osteophytes and la teral compartment joint space obliteration. Question intra-articular bodies. Soft tissues: No joint effusion. No suspicious soft tissue calcifications. Question intra-articula r bodies. IMPRESSION: Advanced lateral compartment degenerative arthritis of the right knee. Question intra-ar ticular bodies. Reviewed by: Nilson Lopez MD on 01/20/2021 4:02 PM [facility] Approved by: Nilson Lopez MD on 01/20/2021 4:02 PM [facility] Station ID: [id number]
== END 2021-01-20 11:31 | disposition home or self-care (01) ==
LOC: DI.N 11:30
PROVIDERS: ATTEND Physician Assistant
DX: M17.11 Unilateral primary osteoarthritis, right knee (principal)

== ENCOUNTER 2021-08-08 13:40 | Outpatient (CLI) | payer MEDICARE, OTHER ==
--- NOTE | 2021-08-08 17:47 | XRAY Report ---
PROCEDURE: Chest 2 View X-Ray INDICATIONS: LUNG CRACKLING SOUNDS TECHNIQUE: 2 view(s) of the chest. COMPARISON: 08/10/2020 FINDINGS: Surgical changes and devices: None. Lungs and pleura: No pleural effusions or pneumothorax. Lungs are clear. Mediastinum: Mediastinal contours are normal. Heart size is normal. Bones and chest wall: No suspicious bony abnormalities. Soft tissues appear unremarkable. IMPRESSION: No acute cardiopulmonary process demonstrated radiographically. Similar chronic left apical opacity with pleural thickening and possible left upper lobe collapse Reviewed by: Kevin Shirley MD on 08/08/2021 4:46 PM [facility] Approved by: Kevin Shirley MD on 08/08/2021 4:46 PM [facility] Station ID: [id number]
== END 2021-08-08 13:41 | disposition home or self-care (01) ==
LOC: DI.N 13:40
PROVIDERS: ATTEND Physician Assistant
DX: R09.89 Other specified symptoms and signs involving the circulatory and respiratory systems (principal); R06.2 Wheezing; R60.0 Localized edema; R91.8 Other nonspecific abnormal finding of lung field

== ENCOUNTER 2021-09-07 17:32 | Outpatient (CLI) | payer MEDICARE, OTHER ==
[2021-09-07] MEDS ORDERED: IOVERSOL 320 100 ML VIAL IVP ONE ×2 (18:11→18:55)
--- NOTE | 2021-09-08 13:04 | CT Report ---
PROCEDURE: CHEST W INDICATIONS: ABNORMAL FINDINGS ON DX IMAGING TECHNIQUE: After the administration of intravenous contrast, 1 mm axial images were acquired from the pulmonary apices through the posterior costophrenic angles. Axial 5 mm soft tissue kernel reconstructions were performed as well as 8 mm axial MIP and coronal and sagittal 5 mm reformations. For radiation dose reduction, the following was used: automated exposure control, adjustment of mA and/or kV according to patient size. COMPARISON: Chest x-ray 08/08/2021. FINDINGS: Image quality: Excellent. Lungs and pleura: There are bilateral areas of scarring and atelectasis medially within the upper lo bes and the left lower lobe with associated bronchiectasis. There is asymmetric pleural thickening in the left hemithorax with areas of calcified pleural plaques. No acute consolidation. There are a few scattered small indistinct pulmonary nodules in the left upper and lower lobes with associated foci of mucus plugging. Mediastinum: Heart size is normal. No pericardial effusion. No mediastinal or hilar adenopathy by size criteria. Thoracic aorta and central pulmonary arteries are normal in size. Esophagus is abner l in caliber. There is a small hiatal hernia. Bones and chest wall: No suspicious bony lesions. No vertebral body compression fractures. No axil ashutosh or supraclavicular adenopathy by size criteria. The thyroid demonstrates no discrete nodules. Abdomen: Visualized upper abdomen demonstrates multiple gallstones in the gallbladder. There is mild dilatation of the common bile duct which measures up to 1.0 cm. No calcified obstructing stone visua lized. IMPRESSION: 1. Bilateral areas of atelectasis and scarring usually within the upper lobes and left lower lobe wit h associated bronchiectasis. The findings likely represent sequelae of prior infection. 2. Asymmetric mild pleural thickening in the left hemithorax with areas of calcified pleural plaques. Given the asymmetric appearance, the findings likely represent sequelae of prior infection or trauma . 3. Multiple small foci of mucus plugging with mild bronchiectasis in the left lung likely reflecting a chronic atypical infection such as from fungal or mycobacterial etiologies. 4. Cholelithiasis without CT evidence of cholecystitis. 5. Mild biliary ductal dilatation without a calcified obstructing stone visualized. Recommend correla tion with laboratory values and if indicated further evaluation may be obtained with ultrasound. Reviewed by: Darek Mendoza MD on 09/08/2021 1:03 PM PST Approved by: Darek Mendoza MD on 09/08/2021 1:03 PM PST Station ID: [id number]
== END 2021-09-07 17:33 | disposition home or self-care (01) ==
LOC: DI 17:32
PROVIDERS: ATTEND Physician Assistant
DX: R93.89 Abnormal findings on diagnostic imaging of other specified body structures (principal); J98.11 Atelectasis; J98.4 Other disorders of lung; J92.9 Pleural plaque without asbestos; J47.9 Bronchiectasis, uncomplicated; K80.20 Calculus of gallbladder without cholecystitis without obstruction; K83.9 Disease of biliary tract, unspecified
CPT/HCPCS: 71260; Q9967

== ENCOUNTER 2023-06-03 14:21 | Outpatient (CLI) | payer MEDICARE, OTHER ==
--- NOTE | 2023-06-04 15:47 | XRAY Report ---
PROCEDURE: Chest 2 View X-Ray INDICATIONS: ACUTE COUGH TECHNIQUE: 2 views of the chest were acquired. COMPARISON: Chest x-ray 08/08/2021 FINDINGS: Surgical changes and devices: None. Lungs and pleura: Redemonstration of left-sided pleural thickening, most within the left apex. This appears similar in appearance to prior. There is a nodular opacity within the medial left upper lung field measuring 1.4 x 0.9 cm which is not definitely seen on prior. Mediastinum: Mediastinal contours appear normal. Heart size is normal. Bones and chest wall: No suspicious bony lesions. Overlying soft tissues appear unremarkable. IMPRESSION: Redemonstration of left-sided pleural thickening, most within the left apex. This appears similar in appearance to prior. There is a nodular opacity within the medial left upper lung field measuring 1.4 x 0.9 cm which is not definitely seen on prior. Recommend short-term follow-up chest x-ray or CT sca n for further evaluation. Reviewed by: Bebo Garcia MD on 06/04/2023 3:45 PM PST Approved by: Bebo Garcia MD on 06/04/2023 3:45 PM PST Station ID: [id number]
== END 2023-06-03 14:22 | disposition home or self-care (01) ==
LOC: DI 14:21
PROVIDERS: ATTEND Internal Medicine
DX: R91.8 Other nonspecific abnormal finding of lung field (principal)

== ENCOUNTER 2023-06-20 23:15 | Outpatient (CLI) | payer MEDICARE, OTHER | END 2023-06-20 23:59 | disposition short-term general hospital (02) | LOC: EMS 23:15 | DX: R10.9 Unspecified abdominal pain (principal); R25.9 Unspecified abnormal involuntary movements; R11.10 Vomiting, unspecified; I48.91 Unspecified atrial fibrillation; Z79.01 Long term (current) use of anticoagulants | CPT/HCPCS: A0425; A0429; A0888 ==

== ENCOUNTER 2023-07-10 08:00 | Outpatient (CLI) | payer MEDICARE, OTHER | END 2023-07-10 23:59 | disposition home or self-care (01) | LOC: LAB 08:00 | PROVIDERS: ATTEND Urology | DX: R31.9 Hematuria, unspecified (principal) | CPT/HCPCS: 87077; 87086; 87181 ==

== ENCOUNTER 2023-07-19 07:55 | Outpatient (CLI) | payer MEDICARE, OTHER ==
[~2023-07-19 07:55] MED LIST: GADOTERATE MEGLUMINE 2.5 MMOL/5 ML VIAL ONE; GADOTERATE MEGLUMINE 5 MMOL/10 ML VIAL ONE
[2023-07-19 08:25] LABS: CREATININE 0.9 mg/dL (0.6-1.3)
[2023-07-19] MEDS ORDERED: GADOTERATE MEGLUMINE 5 MMOL/10 ML VIAL IVP ONE (13:00)
== END 2023-07-19 07:56 | disposition home or self-care (01) ==
LOC: LAB 07:55
PROVIDERS: ATTEND Urology
DX: N28.89 Other specified disorders of kidney and ureter (principal)
CPT/HCPCS: 36415; 82565

== ENCOUNTER 2023-07-25 08:56 | Outpatient (CLI) | payer MEDICARE, OTHER ==
[2023-07-25] MEDS ORDERED: GADOTERATE MEGLUMINE 2.5 MMOL/5 ML VIAL ONE (09:13)
[2023-07-25] MEDS ORDERED: GADOTERATE MEGLUMINE 5 MMOL/10 ML VIAL ONE (09:13)
[2023-07-25] MEDS ORDERED: GADOTERATE MEGLUMINE 5 MMOL/10 ML VIAL IVP ONE (11:20)
--- NOTE | 2023-07-26 20:44 | MRI Report ---
PROCEDURE: ABDOMEN WO INDICATIONS: RENAL MASS TECHNIQUE: Coronal ultra fast SE, axial 2-D spoiled GE in- and [id number] with subtractions from the hepatic d ome to the iliac crests. Restricted diffusion sequences. Coronal T1 vibe without contrast. Patient r efused IV contrast. COMPARISON: CT chest with contrast 09/07/2021. FINDINGS: Image quality: Good. Lung bases and heart: Unremarkable. Liver: No solid mass. Hepatic steatosis. Gallbladder and biliary tree: Large gallstone. No pericholecystic fluid seen. CBD measures 1.1 cm. No filling defect in the CBD is identified. Intrahepatic ducts are felt to be within normal limits. Spleen: No splenomegaly. Pancreas: No pancreatic ductal dilation. A cystic lesion. Adrenals: No nodule. Kidneys and ureters: No hydronephrosis. Multiple T2 hyperintense cyst in the right kidney is unchange d. No hydroureter. No ureteral filling defect. Bowel and peritoneum: No bowel distension. No pathologic free fluid. Diverticulosis. Normal appendix. Visibility artifact in the right abdomen. Lymph nodes: No central or retroperitoneal adenopathy. Vessels: No infrarenal aortic aneurysm. Bones: No aggressive osseous abnormality. Small sacral Tarlov cysts. Other: No significant ventral hernia. IMPRESSION: 1. No mass demonstrated. No restricted diffusion. 2. Hepatic steatosis. 3. Large gallstone. CBD is mildly dilated. Correlation with bilirubin May be helpful. Consider ultrasound for further evaluation. Reviewed by: Chase Faye MD on 07/26/2023 8:43 PM PST Approved by: Chase Faye MD on 07/26/2023 8:43 PM PST Station ID: [id number]
== END 2023-07-25 08:57 | disposition home or self-care (01) ==
LOC: DI 08:56
PROVIDERS: ATTEND Urology
DX: N28.89 Other specified disorders of kidney and ureter (principal); K76.0 Fatty (change of) liver, not elsewhere classified; K80.20 Calculus of gallbladder without cholecystitis without obstruction; K83.8 Other specified diseases of biliary tract
CPT/HCPCS: 74181; A9575